=== PATIENT | male | born 1935 | race Caucasian/White ===

== ENCOUNTER 2017-04-30 13:14 | Inpatient (IN) | payer OTHER ==
[2017-04-30] MEDS ORDERED: ETOMIDATE 20 MG/10 ML VIAL IVP ONE ×2 (13:15→19:00)
[2017-04-30] MEDS ORDERED: SUCCINYLCHOLINE CHLORIDE 200 MG/10 ML VIAL IVP ONE (13:15)
[2017-04-30] MEDS ORDERED: PROPOFOL/EMULSION 1,000 MG/100 ML BOTTLE IV ONE ×2 (13:25→14:12)
[2017-04-30] MEDS ORDERED: PROPOFOL/EMULSION 100 ML IV SCH ×2 (13:25→15:30)
[2017-04-30] MEDS ORDERED: PROPOFOL 200 MG/20 ML VIAL IVP ONE ×2 (13:25→14:10)
[2017-04-30 13:26] LABS: % IMMATURE GRANULYOCYTES 1.1 % (0.0-1.1); ABSOLUTE IMMATURE GRANULOCYTES 0.11 10^3/uL (0.00-0.10); ABSOLUTE NRBC COUNT 0.02 10^3/uL (0-0.01); ADD DIFF? NO; ADD MORPH? NO; ADD SCAN? NO; ATYPICAL LYMPHOCYTE FLAG 10 (0-99); FRAGMENT RBC FLAG 0 (0-99); HEMATOCRIT 41.5 % (40.0-51.0); HEMOGLOBIN 14.1 g/dL (13.7-17.5); LEFT SHIFT FLG 10 (0-99); LIPEMIA HEMOLYSIS FLAG 90 (0-99); MEAN CELL VOLUME 88.3 fL (81.5-99.8); NRBC-AUTO% 0.2 % (0.0-0.2); PLATELET CLUMPS FLAG 0 (0-99); PLATELET COUNT 265 10^3/uL (150-400); RED CELL DISTRIBUTION WIDTH 12.3 % (11.5-15.2)
[2017-04-30] MEDS ORDERED: levETIRAcetam 1,000 MG in NS 100 ML IV ONE (13:26)
[2017-04-30 13:33] LABS: INR 1.03 (0.83-1.16); PROTIME(PATIENT) 13.4 SEC (12.0-15.0)
[2017-04-30 13:34] LABS: APTT 23.6 SEC (23.0-38.0)
[2017-04-30 13:46] LABS: ANION GAP 13 mEq/L (8-16); CALCIUM 9.5 mg/dL (8.5-10.4); CARBON DIOXIDE 21 mEq/l (22-31); CHLORIDE 100 mEq/L (97-110); CREATININE 1.3 mg/dL (0.7-1.3); ETHANOL SERUM < 10 mg/dL (0-10); GLOMERULAR FILTRATION RATE 53; GLUCOSE 100 mg/dL (70-100); POTASSIUM 4.5 mEq/L (3.5-5.2); SODIUM 134 mEq/L (134-144)
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
[2017-04-30 14:23] LABS: BASE EXCESS -2.6 mEq/L (-2.5-2.5); BICARBONATE 21 mEq/L (22-26); MEASURED OXYGEN SATURATION 99 % (92-95); PCO2 34 mmHg (34-38); PO2 186 mmHg (65-75); TCO2 22 mEq/L (23-27)
[2017-04-30 14:24] LABS: ASSIST CONTROL YES
[2017-04-30 14:25] LABS: O2 CONCENTRATIION 100 % (0-100); P/F RATIO 186 RATIO; TOTAL RATE 22
[2017-04-30] MEDS: fentaNYL/NACL 100 ML IV SCH (15:27)
--- NOTE | 2017-04-30 16:13 | POSTOPPROG ---
Post Op Note Date of Operation: 04/30/17 Surgeon: Darrel Williamson Supervisor Photoengraving: none Anesthesiologist: none Anesthesia: IV Sedation Pre-op Diagnosis: right ptx Post-op Diagnosis: same Indication: hypoxia Procedure: Right closed tube thoracostomy Findings: resolution of PTX Inf/Abcess present in the surg proc area at time of surgery?: No EBL: Minimal Drains: Other (28Fr chest tube)
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
[2017-04-30] MEDS ORDERED: NALOXONE HCL 0.4 MG/ML INJ IVP PRN (16:20)
[2017-04-30] MEDS ORDERED: LIDOCAINE 1% 300 MG/30 ML SDV ONE (16:55)
[2017-04-30] MEDS ORDERED: LIDOCAINE 2% JELLY 5 ML TUBE ONE (16:57)
[2017-04-30] MEDS ORDERED: LIDOCAINE 1% 300 MG/30 ML SDV MISC ONE (17:05)
[2017-04-30] MEDS ORDERED: LIDOCAINE 2% JELLY 5 ML TUBE TP ONE (17:05)
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
[2017-04-30] MEDS ORDERED: NS BOLUS 1000 ML (Wide open) IV ONE (18:30)
[2017-04-30 18:52] LABS: COLOR YELLOW; LEUKOCYTE ESTERASE,URINE TRACE (NEGATIVE); NITRITE,URINE NEGATIVE (NEGATIVE)
[2017-04-30 18:54] LABS: MUCUS TRACE /lpf (NONE-1+)
--- NOTE | 2017-04-30 19:30 | GPN ---
[f rep st] PROCEDURE NOTE DATE OF PROCEDURE: 04/30/2017 PROCEDURE: Flexible fiberoptic bronchoscopy. REASON FOR THE PROCEDURE: Probable aspiration. PROCEDURE NOTE: The risks and benefits of the procedure were explained to the patient's family, who agreed to proceed. The entire procedure was performed in the intensive care unit with the patient un venus blood pressure, EKG, and oximetry monitoring. It was my assessment that there was no significant risk of airborne infection from the procedure. After an appropriate time-out, 2 cc 1% lidocaine was instilled into the patient's endotracheal tube. The bronchoscope was advanced through the endotrach eal tube, where I encountered a small to moderate amount of purulent secretions. These were easily s uctioned. I then proceeded to the right-sided airways, where there was near-complete obstruction of the right b ronchus intermedius with purulent secretions, with some firm objects that appeared to be foreign mate rial. The secretions and material were removed, and required me to remove the bronchoscope about 8-1 0 times because of occlusion of the bronchoscope channel, or because the objects were too large to be suctioned through the channel. Most of the material was from the basal segments of the lower lobe. There were no significant secretions or endobronchial material in the upper lobe. There were also s ecretions and material in the middle lobe, and superior segment of the right lower lobe. I then turned to the left-sided airways, where I encountered a scant amount of secretions with some h олег foreign material in the mainstem bronchus, and also the lower lobe. This was easily removed and the total volume was fairly small. The left lower lobe was then lavaged and was clear. I then returned to the right-sided airways, where the lower lobe was lavaged. All airways were clear at the end of this procedure. No specimens were sent. The patient received small boluses of fentan yl and propofol during the procedure for anesthesia and sedation. There were no complications or ble eding with the procedure. /[id number]/MODL
[2017-04-30] MEDS: CHLORHEXIDINE GLUCONATE 15 ML UDL PO SCH (20:54)
[2017-04-30] MEDS: FAMOTIDINE 20 MG/NACL 50 ML IV SCH (20:54)
[2017-04-30] MEDS: levETIRAcetam 500 MG in NS 100 ML IV SCH (20:56)
[2017-04-30] MEDS ORDERED: FAMOTIDINE 20 MG/NACL 50 ML IV SCH ×2 (21:00)
[2017-04-30 21:39] LABS: BASE EXCESS -3.7 mEq/L (-2.5-2.5); BICARBONATE 20 mEq/L (22-26); MEASURED OXYGEN SATURATION 92 % (92-95); PCO2 33 mmHg (34-38); PO2 66 mmHg (65-75); TCO2 21 mEq/L (23-27)
[2017-04-30 21:41] LABS: END TIDAL CO2 26; SIMV YES
[2017-04-30 21:42] LABS: PATIENT RATE 12; PIP 20.8; PRESSURE SUPPORT 7
--- NOTE | 2017-04-30 21:52 | NEUSURGPN ---
Subjective: Repeat Head CT reviewed. There is a small new SDH with small shearing hematomas...no midline shift or mass effect. Patient is still intubated with non-focal neuro examination. Will repeat Head CT in the am. Catheter Insertion Date: 04/30/17 Neurosurgery Physical Exam - Vitals, I&O, Labs I and O 04/29/17 04/30/17 05/01/17 05:59 05:59 05:59 Intake Total 1231.0 Output Total 550 Balance 681.0 Weight 59.2 kg Intake: IV Intake (ml) 1000 IV Infused (ml) 231.0 Propofol/Emulsion 100 ml 10.8 @ Per Protocol IV CONT LUCIA Rx#:[id number] fentaNYL/NACL 100 ml @ 20.2 Per Protocol IV CONT LUCIA Rx#:[id number] Output: Urine (ml) 350 Catheter 350 Emesis (ml) 200 Vital Signs Temp Pulse Resp BP Pulse Ox 37.5 C 64 21 H 95/61 L 94 04/30/17 19:00 04/30/17 21:00 04/30/17 21:00 04/30/17 21:00 04/30/17 21:00 Laboratory Results 04/30/17 Unknown 04/30/17 Unknown ICD10 Worksheet Patient Problems: Problems Problem Status Onset Closed right clavicular fracture Acute Multiple rib fractures involving four or more ribs Acute Pneumothorax Acute Right acetabular fracture Acute Subarachnoid hemorrhage, traumatic Acute Traumatic pneumothorax Acute
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
[2017-05-01] MEDS: fentaNYL/NACL 100 ML IV SCH (06:39)
[2017-05-01] MEDS: levETIRAcetam 500 MG in NS 100 ML IV SCH ×2 (08:19→21:28)
[2017-05-01] MEDS: CHLORHEXIDINE GLUCONATE 15 ML UDL PO SCH ×2 (08:19→21:28)
[2017-05-01 08:36] LABS: % IMMATURE GRANULYOCYTES 0.4 % (0.0-1.1); ABSOLUTE IMMATURE GRANULOCYTES 0.05 10^3/uL (0.00-0.10); ADD DIFF? NO; ADD MORPH? NO; ADD SCAN? NO; ATYPICAL LYMPHOCYTE FLAG 0 (0-99); FRAGMENT RBC FLAG 0 (0-99); HEMATOCRIT 33.9 % (40.0-51.0); HEMOGLOBIN 11.3 g/dL (13.7-17.5); LEFT SHIFT FLG 40 (0-99); LIPEMIA HEMOLYSIS FLAG 80 (0-99); MEAN CELL HEMOGLOBIN 30.4 pg (27.9-34.1); MEAN CELL HEMOGLOBIN CONCENTR. 33.3 g/dL (32.4-36.7); MEAN CELL VOLUME 91.1 fL (81.5-99.8); MEAN PLATELET VOLUME 10.6 fL (8.7-11.7); PLATELET CLUMPS FLAG 0 (0-99); PLATELET COUNT 158 10^3/uL (150-400); RED BLOOD CELL COUNT 3.72 10^6/uL (4.40-6.38); RED CELL DISTRIBUTION WIDTH 13.1 % (11.5-15.2)
--- NOTE | 2017-05-01 08:37 | SOAPPROG ---
SOAP Progress Note Assessment/Plan: Assessment: NO Change in condition Plan:Non operateive management for both right Clavicle Fracture and Left Acetabular Fracture WB as tolerated B LE's NWB Right UE 05/01/17 08:36 Subjective: Intubated and sedated Objective: Vital Signs Temp Pulse Resp BP Pulse Ox 37.2 C 71 17 99/66 L 97 05/01/17 08:00 05/01/17 08:00 05/01/17 08:00 05/01/17 08:00 05/01/17 08:00 04/30/17 05/01/17 05/02/17 05:59 05:59 05:59 Intake Total 2026.0 Output Total 1405 Balance 621.0 PT 13.4 SEC (12.0-15.0) 04/30/17 Unknown INR 1.03 (0.83-1.16) 04/30/17 Unknown NO change in condition. CXR from this am shows clavicle is unchanged in position (stable) ICD10 Worksheet Patient Problems: Problems Problem Status Onset Closed right clavicular fracture Acute Multiple rib fractures involving four or more ribs Acute Pneumothorax Acute Right acetabular fracture Acute Subarachnoid hemorrhage, traumatic Acute Traumatic pneumothorax Acute
[2017-05-01] MEDS ORDERED: ERTAPENEM 1 GM in NS 100 ML IV SCH (09:00)
[2017-05-01 09:08] LABS: ANION GAP 11 mEq/L (8-16); CALCIUM 8.2 mg/dL (8.5-10.4); CARBON DIOXIDE 20 mEq/l (22-31); CHLORIDE 105 mEq/L (97-110); CREATININE 1.9 mg/dL (0.7-1.3); GLOMERULAR FILTRATION RATE 34; GLUCOSE 108 mg/dL (70-100); POTASSIUM 5.5 mEq/L (3.5-5.2); SODIUM 136 mEq/L (134-144); SPECIMEN HEMOLYSIS 178
--- NOTE | 2017-05-01 09:58 | TRAUMAPN ---
Assessment/Plan: no new overnight issues. CT with increasing SDH last ann - unchanged today am. t 37.2. BP 100/70. P 71. R 17. intubated, sedated. HEENT - dried blood right temporal region. PERRLA/EOMI. heart regular. lungs clear. abd nontender. chest - no leak - serosang. pelvis stable. ext warm without edema. s/p BCA SAH/SDH-stable on f/u CT today-NS following Aspiration/resp failure -vent wean as able, empiric ABX, right lower lobe density - ?asp vs retained blood Right clavicle fx - supportive care Mult rib rx (12R, 1L) with PTX - high risk for postop pneumonia once extubate - pulm toilet will be critical - cont drainage until extubated - no leak noted today Right acetab fx - supportive care - apprec ortho eval Objective: Vital Signs Temp Pulse Resp BP Pulse Ox 37.2 C 69 23 H 109/66 96 05/01/17 08:00 05/01/17 09:00 05/01/17 09:00 05/01/17 09:00 05/01/17 09:00 Laboratory Results 05/01/17 08:30 05/01/17 08:30 04/30/17 05/01/17 05/02/17 05:59 05:59 05:59 Intake Total 2026.0 Output Total 1405 Balance 621.0 PT 13.4 SEC (12.0-15.0) 04/30/17 Unknown INR 1.03 (0.83-1.16) 04/30/17 Unknown
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
[2017-05-01 10:14] LABS: BASE EXCESS -4.4 mEq/L (-2.5-2.5); BICARBONATE 20 mEq/L (22-26); MEASURED OXYGEN SATURATION 95 % (92-95); PCO2 34 mmHg (34-38); PO2 78 mmHg (65-75); TCO2 21 mEq/L (23-27)
[2017-05-01] MEDS: NS 1,000 ML IV SCH ×3 (11:16→21:29)
[2017-05-01 15:01] LABS: ANION GAP 6 mEq/L (8-16); CALCIUM 8.1 mg/dL (8.5-10.4); CARBON DIOXIDE 21 mEq/l (22-31); CHLORIDE 106 mEq/L (97-110); CREATININE 1.9 mg/dL (0.7-1.3); GLOMERULAR FILTRATION RATE 34; GLUCOSE 112 mg/dL (70-100); POTASSIUM 4.5 mEq/L (3.5-5.2); SODIUM 133 mEq/L (134-144)
[2017-05-01] MEDS ORDERED: NS 1,000 ML IV ONE (15:02)
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
[2017-05-01] MEDS: FAMOTIDINE 20 MG/NACL 50 ML IV SCH (21:28)
[2017-05-02 04:41] LABS: ALANINE AMINOTRANSFERASE 46 IU/L (21-72); ALBUMIN 2.6 g/dL (3.5-5.0); ALKALINE PHOSPHATASE 53 IU/L (38-126); ANION GAP 9 mEq/L (8-16); ASPARTATE AMINOTRANSFERASE 31 IU/L (17-59); BILIRUBIN,TOTAL 0.7 mg/dL (0.1-1.4); CALCIUM 7.8 mg/dL (8.5-10.4); CARBON DIOXIDE 19 mEq/l (22-31); CHLORIDE 111 mEq/L (97-110); CREATININE 1.3 mg/dL (0.7-1.3); GLOMERULAR FILTRATION RATE 53; GLUCOSE 99 mg/dL (70-100); POTASSIUM 4.1 mEq/L (3.5-5.2); SODIUM 139 mEq/L (134-144); TOTAL PROTEIN 5.3 g/dL (6.3-8.2)
[2017-05-02] MEDS: fentaNYL/NACL 100 ML IV SCH (07:13)
--- NOTE | 2017-05-02 08:03 | TRAUMAPN ---
- Problem/Surgery Performed (1) Closed right clavicular fracture Assessment/Plan: ortho consult Dr. Mills/operative intervention not recommended Qualifiers: Encounter type: initial encounter (2) Multiple rib fractures involving four or more ribs Assessment/Plan: continue supportive care/attempt wean from vent (3) Pneumothorax Assessment/Plan: repeat CXR shows lung to be fully inflated without pneumo-CT placed to H20 seal/ CT dressing change today Qualifiers: Pneumothorax type: traumatic (4) Right acetabular fracture Assessment/Plan: ortho consult Dr. Mills-recommends non-operative Rx Qualifiers: Encounter type: initial encounter Sublocation of acetabulum: anterior wall Fracture alignment: nondisplaced (5) Subarachnoid hemorrhage, traumatic Assessment/Plan: stable on sequential CT Qualifiers: Encounter type: initial encounter Loss of consciousness presence/duration: with LOC of unspecified duration Qualified Code(s): S06.6X9A - Traumatic subarachnoid hemorrhage with loss of consciousness of unspecified duration, initial encounter (6) Aspiration pneumonia due to regurgitated food Assessment/Plan: s/p bronch/Day #3 Ertapenam Qualifiers: Laterality: unspecified laterality Assessment/Plan: continue ventilatory support/sedation vacation for weaning assessment tertiary survey when extubated Subjective: intubated/sedated RN reports patient not moving right side of body Objective: Vital Signs Temp Pulse Resp BP Pulse Ox 37.3 C 66 27 H 150/70 H 99 05/02/17 04:00 05/02/17 07:00 05/02/17 07:00 05/02/17 07:00 05/02/17 07:00 Laboratory Results 05/01/17 08:30 05/02/17 04:15 05/01/17 05/02/17 05/03/17 05:59 05:59 05:59 Intake Total 2026.0 4655 Output Total 1405 775 50 Balance 621.0 3880 -50 PT 13.4 SEC (12.0-15.0) 04/30/17 Unknown INR 1.03 (0.83-1.16) 04/30/17 Unknown - C-Spine Clearance Cervical Spine Cleared: No Physical Exam - Physical Exam General Appearance: unresponsive EENT: ET tube, other (C-collar/large right parietal scalp hematoma) Neck: other ([place] J collar in place) Respiratory: decreased breath sounds, pleural rub, other (minute ventilation 9.7 lpm, bloody CT site-dressing removed, no air leak with CT on suction- minimal output) Peripheral Pulses: 2+: dorsalis-pedis (R), dorsalis-pedis (L) Abdomen: soft, other (hypoactive bowel sounds) Rectal: deferred Skin: other (contusion right hip) Extremities: other (flacid RUE/RLE, RLE internal rotated) Neuro/Psych: motor weakness (right), cognition abnormalities, other (sedated/ intubated) Time Spent w/Patient (minutes): 20
[2017-05-02] MEDS: hydrALAZINE 20 MG/ML VIAL IVP PRN ×2 (08:14→17:08)
[2017-05-02] MEDS: levETIRAcetam 500 MG in NS 100 ML IV SCH ×2 (08:18→21:03)
[2017-05-02] MEDS: ERTAPENEM 0.5 GM in NS 50 ML IV SCH (08:18)
[2017-05-02] MEDS: CHLORHEXIDINE GLUCONATE 15 ML UDL PO SCH ×2 (08:18→20:00)
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
--- NOTE | 2017-05-02 12:42 | ASMTCMCOM ---
CM Note CM Note Notes: OT/PT/SPL/Inpat rehab have been ordered. Anitha with [facility] is following. Patient is still on vent, needs to be more alert to protect his airway. Patient has not had much neurological improvement so far. CM will follow. Date Signed: 05/02/2017 12:41 PM Electronically Signed By:Tanya Silva LCSW
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
--- NOTE | 2017-05-02 14:53 | SOAPPROG ---
SOAP Progress Note Assessment/Plan: Assessment/Plan: R clavicle fracture, R acetabular fracture - Treating non-operatively - WBAT BLE - NWB RUE - Ice for comfort 05/02/17 14:50 Subjective: Sedated. Family at bedside Objective: Vital Signs Temp Pulse Resp BP Pulse Ox 37.3 C 69 20 140/72 H 99 05/02/17 04:00 05/02/17 14:00 05/02/17 14:00 05/02/17 14:00 05/02/17 14:00 Microbiology 05/02/17 08:25 - Final Sputum, Induced/Suctioned Laboratory Results 05/01/17 08:30 05/02/17 04:15 05/01/17 05/02/17 05/03/17 05:59 05:59 05:59 Intake Total 2026.0 4655 Output Total 1405 775 255 Balance 621.0 3880 -255 PT 13.4 SEC (12.0-15.0) 04/30/17 Unknown INR 1.03 (0.83-1.16) 04/30/17 Unknown Physical Exam - Physical Exam General Appearance: no apparent distress, other (sedated) Skin: warm/dry, other (ecchymosis R shoulder) Extremities: normal capillary refill, other (Wiggles toes on R foot and responds to stimuli. Skin intact RUE without any tenting of the skin), No pedal edema, No calf tenderness ICD10 Worksheet Patient Problems: Problems Problem Status Onset Aspiration pneumonia due to regurgitated food Acute Closed right clavicular fracture Acute Multiple rib fractures involving four or more ribs Acute Pneumothorax Acute Right acetabular fracture Acute Subarachnoid hemorrhage, traumatic Acute Traumatic pneumothorax Acute
[2017-05-02] MEDS: FAMOTIDINE 20 MG/NACL 50 ML IV SCH (21:02)
[2017-05-03] MEDS: NS 1,000 ML IV SCH ×3 (01:55→23:34)
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
[2017-05-03] MEDS: levETIRAcetam 500 MG in NS 100 ML IV SCH ×2 (08:24→21:45)
[2017-05-03] MEDS: fentaNYL/NACL 100 ML IV SCH (08:24)
[2017-05-03] MEDS: ERTAPENEM 0.5 GM in NS 50 ML IV SCH (09:36)
[2017-05-03] MEDS ORDERED: LIDOCAINE 1% 300 MG/30 ML SDV MISC ONE (10:42)
[2017-05-03] MEDS ORDERED: LIDOCAINE 2% JELLY 5 ML TUBE TP ONE (10:42)
[2017-05-03] MEDS ORDERED: LIDOCAINE 1% 300 MG/30 ML SDV ONE (10:48)
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
[2017-05-03] MEDS: CHLORHEXIDINE GLUCONATE 15 ML UDL PO SCH ×2 (12:07→22:15)
[2017-05-03] MEDS ORDERED: TAMSULOSIN HCL 0.4 MG CAP PO SCH (12:15)
[2017-05-03] MEDS: LISINOPRIL 40 MG TAB PO SCH (12:27)
[2017-05-03] MEDS: ATORVASTATIN CALCIUM 20 MG TAB PO SCH (12:27)
--- NOTE | 2017-05-03 12:57 | GPN ---
[f rep st] PROCEDURE NOTE DATE OF PROCEDURE: 05/03/2017 PROCEDURE: Flexible fiberoptic bronchoscopy. INDICATIONS FOR PROCEDURE: Respiratory failure with retained secretions. PROCEDURE: The risks and benefits of the procedure were explained to the patient's son, who agreed t o proceed. The entire procedure was performed in the intensive care unit with the patient under bloo d pressure, EKG, and oximetry monitoring. It was my assessment that there was no risk of airborne in fection from the procedure. After an appropriate time-out, the bronchoscope was advanced through the endotracheal tube. I encountered some purulent secretions in the distal trachea, which were easily suctioned. This was a moderate amount of secretions. They came primarily from the right-sided airwa ys, where there were scattered purulent secretions in the right mainstem bronchus and bronchus interm edius. These were all suctioned and primarily were coming from the lower lobe segments, which were s uctioned and lavaged until clear. I then turned to the left-sided airways, where I encountered a sma [id number] amount of purulent secretions, which were partially occlusive of some lower lobe segme nts. These were suctioned and lavaged until clear. The patient tolerated the procedure well. He re ceived 100 mcg of fentanyl intravenously. No specimens were sent. There were no complications appar ent at the end of the procedure. /[id number]/MODL
--- NOTE | 2017-05-03 14:16 | TRAUMAPN ---
- Problem/Surgery Performed (1) Subarachnoid hemorrhage, traumatic Assessment/Plan: PAD#3 05/03/2017 Moving bilateral upper and lower extremities spontaneously but not on command, right greater than left. He will open his eyes to command. Qualifiers: Encounter type: subsequent encounter Loss of consciousness presence/ duration: with LOC of unspecified duration Qualified Code(s): S06.6X9D - Traumatic subarachnoid hemorrhage with loss of consciousness of unspecified duration, subsequent encounter (2) Closed right clavicular fracture Assessment/Plan: 05/03/2017 Will plan to use right arm sling. NWB at this time Qualifiers: Encounter type: initial encounter (3) Pneumothorax Assessment/Plan: 05/03/2017 No air leak x 24 hours, minimal fluid out, Lung up on CXR. Chest tube removed. Qualifiers: Pneumothorax type: traumatic (4) Aspiration pneumonia due to regurgitated food Assessment/Plan: 04/23/2017 Bronch today showed some purulence. Sputum from yesterday prelaminarly shows nick. Repeat Bronch tomorrow and may consider antifungal tx. Qualifiers: Laterality: unspecified laterality (5) Malnutrition Assessment/Plan: 05/03/2017 Will start tube feeds today (6) Respiratory insufficiency Assessment/Plan: 05/03/2017 Still intubated. Undergoing weaning trials (7) Abrasions of multiple sites Assessment/Plan: 05/03/2017 right facial abrasions well scabbed. Right elbow abrasions still open - superficial partial thickness. Right flank abrasion superficial. right lower lateral leg abrasions healing. Right hip contusion stable. Assessment/Plan: 05/03/2017 Continues to slowly improve Subjective: 05/03/2017 Still intubated Objective: Vital Signs Temp Pulse Resp BP Pulse Ox 37.3 C 50 L 18 140/72 H 99 05/03/17 12:15 05/03/17 13:00 05/03/17 13:00 05/03/17 13:00 05/03/17 13:00 Microbiology 05/02/17 08:25 - Final Sputum, Induced/Suctioned Laboratory Results 05/01/17 08:30 05/02/17 04:15 05/02/17 05/03/17 05/04/17 05:59 05:59 05:59 Intake Total 4655 1883.3 Output Total 775 602 150 Balance 3880 1281.3 -150 PT 13.4 SEC (12.0-15.0) 04/30/17 Unknown INR 1.03 (0.83-1.16) 04/30/17 Unknown - C-Spine Clearance Cervical Spine Cleared: No Physical Exam - Physical Exam General Appearance: WD/WN, other (intubated. Will open eyes to command) EENT: other (Facial contusions healing) Neck: other (In C-collar. Because of multiple degenerative changes will await extubation to clear.) Respiratory: lungs clear, normal breath sounds, other (chest tube out) Cardiac/Chest: regular rate, rhythm Abdomen: normal bowel sounds, non-tender, soft Male Genitalia: deferred Rectal: deferred Back: Normal inspection (except for right back abrasions) Skin: normal color, warm/dry, other (See notes above describing abrasions) Extremities: normal range of motion, non-tender Neuro/Psych: other (intubated, opening eyes to command. moving extremeties spontaneously) Time Spent w/Patient (minutes): 35
[2017-05-03 15:17] LABS: BASE EXCESS -4.6 mEq/L (-2.5-2.5); BICARBONATE 19 mEq/L (22-26); CPAP YES; MEASURED OXYGEN SATURATION 96 % (92-95); O2 CONCENTRATIION 40 % (0-100); P/F RATIO 198 RATIO; PCO2 32 mmHg (34-38); PO2 79 mmHg (65-75); TCO2 20 mEq/L (23-27)
[2017-05-03 15:18] LABS: END TIDAL CO2 27; PATIENT RATE 24; PRESSURE SUPPORT 7
[2017-05-03 15:23] LABS: % IMMATURE GRANULYOCYTES 0.4 % (0.0-1.1); ABSOLUTE IMMATURE GRANULOCYTES 0.02 10^3/uL (0.00-0.10); ADD DIFF? NO; ADD MORPH? NO; ADD SCAN? NO; ATYPICAL LYMPHOCYTE FLAG 0 (0-99); FRAGMENT RBC FLAG 0 (0-99); HEMATOCRIT 29.4 % (40.0-51.0); HEMOGLOBIN 9.4 g/dL (13.7-17.5); LEFT SHIFT FLG 0 (0-99); LIPEMIA HEMOLYSIS FLAG 80 (0-99); MEAN CELL HEMOGLOBIN 29.9 pg (27.9-34.1); MEAN CELL VOLUME 93.6 fL (81.5-99.8); MEAN PLATELET VOLUME 10.8 fL (8.7-11.7); PLATELET CLUMPS FLAG 0 (0-99); PLATELET COUNT 117 10^3/uL (150-400); RED BLOOD CELL COUNT 3.14 10^6/uL (4.40-6.38); RED CELL DISTRIBUTION WIDTH 13.3 % (11.5-15.2)
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
[2017-05-03] MEDS: FAMOTIDINE 20 MG/NACL 50 ML IV SCH (21:45)
[2017-05-03] MEDS: hydrALAZINE 20 MG/ML VIAL IVP PRN (22:21)
[2017-05-04] MEDS: fentaNYL/NACL 100 ML IV SCH (03:22)
[2017-05-04 06:03] LABS: HEMATOCRIT 30.6 % (40.0-51.0); HEMOGLOBIN 9.8 g/dL (13.7-17.5); MEAN CELL VOLUME 93.6 fL (81.5-99.8); RED BLOOD CELL COUNT 3.27 10^6/uL (4.40-6.38); RED CELL DISTRIBUTION WIDTH 13.2 % (11.5-15.2)
[2017-05-04 06:32] LABS: ALANINE AMINOTRANSFERASE 46 IU/L (21-72); ALBUMIN 2.6 g/dL (3.5-5.0); ALKALINE PHOSPHATASE 61 IU/L (38-126); ANION GAP 6 mEq/L (8-16); ASPARTATE AMINOTRANSFERASE 31 IU/L (17-59); BILIRUBIN,TOTAL 0.7 mg/dL (0.1-1.4); CALCIUM 7.9 mg/dL (8.5-10.4); CARBON DIOXIDE 21 mEq/l (22-31); CHLORIDE 116 mEq/L (97-110); CREATININE 0.9 mg/dL (0.7-1.3); GLOMERULAR FILTRATION RATE > 60; GLUCOSE 115 mg/dL (70-100); POTASSIUM 4.1 mEq/L (3.5-5.2); SODIUM 143 mEq/L (134-144); TOTAL PROTEIN 5.4 g/dL (6.3-8.2)
[2017-05-04] MEDS ORDERED: CYCLOBENZAPRINE 10 MG TAB PO PRN (06:54)
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
[2017-05-04] MEDS: LIDOCAINE 5% 1 EA PATCH TD SCH ×2 (08:40→08:45)
[2017-05-04] MEDS: ATORVASTATIN CALCIUM 20 MG TAB PO SCH (08:41)
[2017-05-04] MEDS: CHLORHEXIDINE GLUCONATE 15 ML UDL PO SCH ×2 (08:41→19:50)
[2017-05-04] MEDS: LISINOPRIL 40 MG TAB PO SCH (08:41)
[2017-05-04] MEDS: levETIRAcetam 500 MG in NS 100 ML IV SCH (08:45)
[2017-05-04] MEDS: KETOROLAC 30 MG/1 ML SDV IVP SCH ×3 (09:15→19:50)
[2017-05-04] MEDS: ERTAPENEM 1 GM in NS 100 ML IV SCH (09:23)
[2017-05-04] MEDS: ACETAMINOPHEN 650 MG/20.3 ML UDCUP TUBE SCH ×3 (09:23→21:10)
--- NOTE | 2017-05-04 10:27 | TRAUMAPN ---
- Problem/Surgery Performed (1) Subarachnoid hemorrhage, traumatic Assessment/Plan: PAD#3 05/03/2017 Moving bilateral upper and lower extremities spontaneously but not on command, right greater than left. He will open his eyes to command. PAD#4 05/04/2017 He is not opening eyes to command or moving extremities spontaneously. Plan: Will get F/u Head CT to re assess. Qualifiers: Encounter type: subsequent encounter Loss of consciousness presence/ duration: with LOC of unspecified duration Qualified Code(s): S06.6X9D - Traumatic subarachnoid hemorrhage with loss of consciousness of unspecified duration, subsequent encounter (2) Closed right clavicular fracture Assessment/Plan: 05/03/2017 Will plan to use right arm sling. NWB at this time 05/04/2017 No change in plan Qualifiers: Encounter type: initial encounter (3) Pneumothorax Assessment/Plan: 05/03/2017 No air leak x 24 hours, minimal fluid out, Lung up on CXR. Chest tube removed. 05/04/2017 Lung up, no PTX/Hemothorax Qualifiers: Pneumothorax type: traumatic (4) Aspiration pneumonia due to regurgitated food Assessment/Plan: 05/03/2017 Bronch today showed some purulence. Sputum from yesterday prelaminarly shows nick. Repeat Bronch tomorrow and may consider antifungal tx. 05/04/2017 Follow up bronch today. WBC down. No temp elevation. Qualifiers: Laterality: unspecified laterality (5) Malnutrition Assessment/Plan: 05/03/2017 Will start tube feeds today 05/04/17 tube feeds at goal (6) Respiratory insufficiency Assessment/Plan: 05/03/2017 Still intubated. Undergoing weaning trials 05/04/2017 tolerated 3.5 hours of CPAP yesterday. Will check Phos levels (7) Abrasions of multiple sites Assessment/Plan: 05/03/2017 right facial abrasions well scabbed. Right elbow abrasions still open - superficial partial thickness. Right flank abrasion superficial. right lower lateral leg abrasions healing. Right hip contusion stable. 05/04/2017 Stable Assessment/Plan: 05/03/2017 Continues to slowly improve. 05/04/2017 Improvement stalled. F/u head CT planned. Subjective: 05/04/2017 still intubated and not communicating. Objective: Vital Signs Temp Pulse Resp BP Pulse Ox 36.9 C 63 16 144/64 H 100 05/04/17 04:00 05/04/17 08:00 05/04/17 08:00 05/04/17 08:00 05/04/17 08:00 Microbiology 05/02/17 08:25 - Final Sputum, Induced/Suctioned Laboratory Results 05/04/17 05:45 05/04/17 05:45 05/03/17 05/04/17 05/05/17 05:59 05:59 05:59 Intake Total 1883.3 2119.9 Output Total 602 905 Balance 1281.3 1214.9 PT 13.4 SEC (12.0-15.0) 04/30/17 Unknown INR 1.03 (0.83-1.16) 04/30/17 Unknown - C-Spine Clearance Cervical Spine Cleared: No Physical Exam - Physical Exam General Appearance: unresponsive EENT: other (facial abrasions stable) Neck: other (still in collar) Respiratory: lungs clear, normal breath sounds Cardiac/Chest: regular rate, rhythm Abdomen: normal bowel sounds (tolerating tube feeds), non-tender, soft Male Genitalia: deferred Rectal: deferred Back: Normal inspection (except for abrasions) Skin: normal color, warm/dry Extremities: normal range of motion Neuro/Psych: other (still obtunded) Time Spent w/Patient (minutes): 35
[2017-05-04] MEDS ORDERED: LIDOCAINE 1% 300 MG/30 ML SDV MISC ONE (10:52)
[2017-05-04] MEDS ORDERED: MIDAZOLAM 2 MG/2 ML VIAL ONE (11:13)
[2017-05-04] MEDS ORDERED: KETOROLAC 30 MG/1 ML SDV IVP SCH (12:00)
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
--- NOTE | 2017-05-04 13:49 | GPN ---
[f rep st] PROCEDURE NOTE DATE OF PROCEDURE: 05/04/2017 PROCEDURE: Flexible fiberoptic bronchoscopy. REASON FOR PROCEDURE: Respiratory failure with retained secretions. PROCEDURE NOTE: The risks and benefits of the procedure were explained to the patient's son, who agr eed to proceed. The entire procedure was performed in the intensive care unit. The patient had bloo d pressure, EKG and oximetry monitoring. It was my assessment that there was no risk of airborne inf ection from the procedure. After an appropriate timeout, 3 cc of 1% lidocaine were instilled into th e patient's endotracheal tube. The bronchoscope was advanced through the endotracheal tube into the main trachea. The trachea and proximal mainstem bronchi were clear, but below the right upper lobe t akeoff, the right bronchus intermedius was occluded with mucopurulent secretions. These were cleared , and I had to remove the bronchoscope twice in order to clear secretions from the channel. After cl earing the right side, I turned to the left side, where I encountered scant amount of mucopurulent se cretions, which were easily suctioned. I then returned to the right side airways and suctioned the m inimal remaining secretions, and all airways were clear at the end of the procedure. There were no c omplications apparent at the end of the procedure. No sedation was used beyond what he was on via co ntinuous drip, and there was no estimated blood loss. No specimens were sent. /[id number]/MODL
[2017-05-04] MEDS ORDERED: ACETAMINOPHEN 500 MG TAB PO SCH (14:00)
--- NOTE | 2017-05-04 15:41 | ASMTCMCOM ---
CM Note CM Note Notes: Patient is not opening his eyes to command or moving extremities spontaneously. F/U head CT to reassess today. CM will follow. Date Signed: 05/04/2017 03:40 PM Electronically Signed By:Tanya Silva LCSW
--- NOTE | 2017-05-04 16:03 | SOAPPROG ---
SOAP Progress Note Assessment/Plan: Assessment: NO Change in condition Plan:Non operateive management for both right Clavicle Fracture and Left Acetabular Fracture WB as tolerated B LE's NWB Right UE 05/01/17 08:36 05/04/17 16:03 Will sign off now. See D/C plan in EMR for F/U plan. Subjective: Intubated and sedated Objective: Vital Signs Temp Pulse Resp BP Pulse Ox 37.2 C 52 L 18 139/63 H 100 05/04/17 12:00 05/04/17 13:00 05/04/17 13:00 05/04/17 13:00 05/04/17 13:00 Microbiology 05/02/17 08:25 - Final Sputum, Induced/Suctioned Sputum Culture - Final Camila Albicans Laboratory Results 05/04/17 05:45 05/04/17 05:45 05/03/17 05/04/17 05/05/17 05:59 05:59 05:59 Intake Total 1883.3 2119.9 Output Total 602 905 Balance 1281.3 1214.9 PT 13.4 SEC (12.0-15.0) 04/30/17 Unknown INR 1.03 (0.83-1.16) 04/30/17 Unknown No change in popsition of right clavicle as seen on daily CXR's. Will need didicaed clavicle films once up and moving. D/C plan entered in EMR. ICD10 Worksheet Patient Problems: Problems Problem Status Onset Abrasions of multiple sites Acute Aspiration pneumonia due to regurgitated food Acute Closed right clavicular fracture Acute Malnutrition Acute Multiple rib fractures involving four or more ribs Acute Pneumothorax Acute Respiratory insufficiency Acute Right acetabular fracture Acute Subarachnoid hemorrhage, traumatic Acute Traumatic pneumothorax Acute
[2017-05-04] MEDS: CYCLOBENZAPRINE 10 MG TAB TUBE PRN ×2 (18:08→21:09)
[2017-05-04] MEDS: levETIRAcetam 500 MG/5 ML UDCUP TUBE SCH (19:50)
[2017-05-04] MEDS: FAMOTIDINE 20 MG TAB TUBE SCH (19:50)
[2017-05-04] MEDS: PATCH REMOVAL 1 EA PATCH TD SCH (19:51)
[2017-05-05] MEDS: KETOROLAC 30 MG/1 ML SDV IVP SCH ×4 (02:15→20:05)
[2017-05-05 04:45] LABS: % IMMATURE GRANULYOCYTES 0.5 % (0.0-1.1); ABSOLUTE IMMATURE GRANULOCYTES 0.02 10^3/uL (0.00-0.10); ADD DIFF? NO; ADD MORPH? NO; ADD SCAN? NO; ATYPICAL LYMPHOCYTE FLAG 10 (0-99); FRAGMENT RBC FLAG 0 (0-99); HEMOGLOBIN 9.2 g/dL (13.7-17.5); LEFT SHIFT FLG 0 (0-99); LIPEMIA HEMOLYSIS FLAG 80 (0-99); MEAN CELL HEMOGLOBIN 29.9 pg (27.9-34.1); MEAN CELL HEMOGLOBIN CONCENTR. 31.7 g/dL (32.4-36.7); MEAN CELL VOLUME 94.2 fL (81.5-99.8); MEAN PLATELET VOLUME 10.4 fL (8.7-11.7); PLATELET CLUMPS FLAG 20 (0-99); PLATELET COUNT 118 10^3/uL (150-400); RED BLOOD CELL COUNT 3.08 10^6/uL (4.40-6.38); RED CELL DISTRIBUTION WIDTH 13.1 % (11.5-15.2)
[2017-05-05] MEDS: ACETAMINOPHEN 650 MG/20.3 ML UDCUP TUBE SCH (05:06)
[2017-05-05 05:08] LABS: ALANINE AMINOTRANSFERASE 104 IU/L (21-72); ALBUMIN 2.3 g/dL (3.5-5.0); ALKALINE PHOSPHATASE 69 IU/L (38-126); ANION GAP 8 mEq/L (8-16); ASPARTATE AMINOTRANSFERASE 120 IU/L (17-59); BILIRUBIN,TOTAL 0.9 mg/dL (0.1-1.4); CALCIUM 7.8 mg/dL (8.5-10.4); CARBON DIOXIDE 22 mEq/l (22-31); CHLORIDE 117 mEq/L (97-110); GLOMERULAR FILTRATION RATE > 60; GLUCOSE 112 mg/dL (70-100); POTASSIUM 3.8 mEq/L (3.5-5.2); SODIUM 147 mEq/L (134-144)
[2017-05-05] MEDS: hydrALAZINE 20 MG/ML VIAL IVP PRN ×3 (07:23→15:13)
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
[2017-05-05] MEDS: LISINOPRIL 40 MG TAB TUBE SCH (09:52)
[2017-05-05] MEDS: levETIRAcetam 500 MG/5 ML UDCUP TUBE SCH ×2 (09:52→20:05)
[2017-05-05] MEDS: ATORVASTATIN CALCIUM 20 MG TAB TUBE SCH (09:53)
[2017-05-05] MEDS: FAMOTIDINE 20 MG TAB TUBE SCH ×2 (09:53→20:05)
[2017-05-05] MEDS: CHLORHEXIDINE GLUCONATE 15 ML UDL PO SCH ×2 (09:53→19:14)
[2017-05-05] MEDS: LIDOCAINE 5% 1 EA PATCH TD SCH (09:54)
[2017-05-05] MEDS: ERTAPENEM 1 GM in NS 100 ML IV SCH (09:57)
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
[2017-05-05] MEDS ORDERED: FUROSEMIDE 40 MG/4 ML VIAL IVP ONE (10:04)
[2017-05-05] MEDS: CYCLOBENZAPRINE 10 MG TAB TUBE PRN (10:09)
[2017-05-05] MEDS: HYDROCHLOROTHIAZIDE 25 MG TAB PO SCH (10:29)
[2017-05-05] MEDS ORDERED: LIDOCAINE 1% 300 MG/30 ML SDV MISC ONE (12:04)
[2017-05-05] MEDS ORDERED: LIDOCAINE 2% JELLY 5 ML TUBE TP ONE (12:04)
[2017-05-05] MEDS ORDERED: LIDOCAINE 1% 300 MG/30 ML SDV ONE (12:11)
[2017-05-05] MEDS ORDERED: LIDOCAINE 2% JELLY 5 ML TUBE ONE (12:14)
[2017-05-05] MEDS ORDERED: ACETAMINOPHEN 650 MG/20.3 ML UDCUP TUBE SCH (14:00)
--- NOTE | 2017-05-05 14:18 | GPN ---
[f rep st] PROCEDURE NOTE DATE OF PROCEDURE: 05/05/2017 PROCEDURE: Flexible fiberoptic bronchoscopy. REASON FOR PROCEDURE: Respiratory failure with retained secretions. PROCEDURE NOTE: The risks and benefits of the procedure were explained to the patient's son, who agr eed to proceed. The entire procedure was performed in the intensive care unit with the patient under blood pressure, EKG and oximetry monitoring. It was my assessment that there was no significant ris k of airborne infection from the procedure. After an appropriate timeout, 3 cc 1% lidocaine were ins tilled into the patient's endotracheal tube. The bronchoscope was advanced through the endotracheal tube, which was clear of secretions. There were no secretions in the trachea. In the right-sided ai rways, the right upper lobe was clear, but the right bronchus intermedius was occluded with mucopurul ent secretions. These were suctioned. I had to remove the bronchoscope twice to clear secretions fr om the channel. I was able to remove all secretions from the right-sided airways. They were primari ly emanating from the right lower lobe. I then turned to the left-sided airways, where I encountered a scant amount of secretions in the posterior segment of the left lower lobe. This was lavaged with a small volume of saline. I then returned to the right-sided airways, where I performed a lavage of the right lower lobe with return of clear fluid. All airways were clear of secretions at the end of the procedure. No sedation was used for the procedure. No specimens were obtained. There were no complications and no blood loss. /[id number]/MODL
[2017-05-05] MEDS ORDERED: METOPROLOL TARTRATE 25 MG TAB PO ONE (16:43)
[2017-05-05] MEDS: PATCH REMOVAL 1 EA PATCH TD SCH (20:05)
[2017-05-05] MEDS: fentaNYL/NACL 100 ML IV SCH (21:33)
[2017-05-06] MEDS: KETOROLAC 30 MG/1 ML SDV IVP SCH ×4 (03:26→19:38)
[2017-05-06] MEDS: hydrALAZINE 20 MG/ML VIAL IVP PRN ×3 (05:02→18:04)
[2017-05-06] MEDS: ATORVASTATIN CALCIUM 20 MG TAB TUBE SCH (08:58)
[2017-05-06] MEDS: CHLORHEXIDINE GLUCONATE 15 ML UDL PO SCH ×2 (08:58→19:38)
[2017-05-06] MEDS: LIDOCAINE 5% 1 EA PATCH TD SCH (08:59)
[2017-05-06] MEDS: HYDROCHLOROTHIAZIDE 25 MG TAB PO SCH (08:59)
[2017-05-06] MEDS: ERTAPENEM 1 GM in NS 100 ML IV SCH (08:59)
[2017-05-06] MEDS: levETIRAcetam 500 MG/5 ML UDCUP TUBE SCH ×2 (08:59→19:39)
[2017-05-06] MEDS: FAMOTIDINE 20 MG TAB TUBE SCH ×2 (08:59→19:38)
[2017-05-06] MEDS: LISINOPRIL 40 MG TAB TUBE SCH (09:00)
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
[2017-05-06] MEDS ORDERED: ALTEPLASE 2 MG VIAL IVP PRN (10:11)
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
[2017-05-06] MEDS: FUROSEMIDE 20 MG/2 ML VIAL IVP SCH ×2 (11:28→19:38)
[2017-05-06] MEDS: METOPROLOL TARTRATE 25 MG TAB PO SCH ×2 (11:29→19:38)
[2017-05-06] MEDS ORDERED: LIDOCAINE 2% JELLY 5 ML TUBE TP ONE (12:49)
[2017-05-06] MEDS ORDERED: LIDOCAINE 1% 300 MG/30 ML SDV MISC ONE (12:49)
[2017-05-06 14:39] LABS: ALANINE AMINOTRANSFERASE 98 IU/L (21-72); ALBUMIN 2.6 g/dL (3.5-5.0); ALKALINE PHOSPHATASE 86 IU/L (38-126); ANION GAP 10 mEq/L (8-16); ASPARTATE AMINOTRANSFERASE 78 IU/L (17-59); BILIRUBIN,TOTAL 0.8 mg/dL (0.1-1.4); CALCIUM 8.2 mg/dL (8.5-10.4); CARBON DIOXIDE 25 mEq/l (22-31); CHLORIDE 107 mEq/L (97-110); CREATININE 0.9 mg/dL (0.7-1.3); GLOMERULAR FILTRATION RATE > 60; GLUCOSE 117 mg/dL (70-100); POTASSIUM 3.4 mEq/L (3.5-5.2); SODIUM 142 mEq/L (134-144); TOTAL PROTEIN 5.5 g/dL (6.3-8.2)
[2017-05-06] MEDS ORDERED: ALBUMIN 25% 100 ML IV ONE (14:46)
--- NOTE | 2017-05-06 16:26 | TRAUMAPN ---
Assessment/Plan: - Problem/Surgery Performed (1) Closed right clavicular fracture Assessment/Plan: ortho consult Dr. Mills/operative intervention not recommended Qualifiers: Encounter type: initial encounter (2) Multiple rib fractures involving four or more ribs Assessment/Plan: continue supportive care/attempt wean from vent (3) Pneumothorax Assessment/Plan: CT out/will check repeat CXR - stable Qualifiers: Pneumothorax type: traumatic (4) Right acetabular fracture Assessment/Plan: ortho consult Dr. Mills-recommends non-operative Rx Qualifiers: Encounter type: initial encounter Sublocation of acetabulum: anterior wall Fracture alignment: nondisplaced (5) Subarachnoid hemorrhage, traumatic Assessment/Plan: stable on sequential CT/neurologically improved Qualifiers: Encounter type: subsequent encounter Loss of consciousness presence/ duration: with LOC of unspecified duration Qualified Code(s): S06.6X9D - Traumatic subarachnoid hemorrhage with loss of consciousness of unspecified duration, subsequent encounter (6) Aspiration pneumonia due to regurgitated food Assessment/Plan: most recent bronch cultures show Camila Qualifiers: Laterality: unspecified laterality Assessment/Plan: continue ventilatory support/sedation vacation for weaning assessment Hope to extubate in next 24-48 hours - some concern over mental status. If not trach, mid week Subjective: awake with spontaneous eye movement/able to follow commands intermitantly/ intubated Objective: Vital Signs Temp Pulse Resp BP Pulse Ox 36.8 C 61 16 134/53 H 99 05/06/17 16:00 05/06/17 16:00 05/06/17 16:00 05/06/17 16:00 05/06/17 16:00 Laboratory Results 05/05/17 04:30 05/06/17 14:15 05/05/17 05/06/17 05/07/17 05:59 05:59 05:59 Intake Total 3124 2413.3 Output Total 730 2950 1350 Balance 2394 -536.7 -1350 PT 13.4 SEC (12.0-15.0) 04/30/17 Unknown INR 1.03 (0.83-1.16) 04/30/17 Unknown - C-Spine Clearance Cervical Spine Cleared: No Physical Exam - Physical Exam General Appearance: WD/WN, no apparent distress, other (intubated and sedated) EENT: PERRL/EOMI, No scleral icterus (R), No scleral icterus (L) Neck: other (collar in place) Respiratory: other (coarse bilaterally, equal) Cardiac/Chest: regular rate, rhythm Abdomen: normal bowel sounds, non-tender, soft Skin: normal color, warm/dry Extremities: other (left strength greater than right) Neuro/Psych: motor weakness
[2017-05-06] MEDS: ACETAMINOPHEN 650 MG/20.3 ML UDCUP PO SCH (17:58)
[2017-05-06] MEDS: PATCH REMOVAL 1 EA PATCH TD SCH (19:39)
--- NOTE | 2017-05-06 21:11 | GPN ---
[f rep st] PROCEDURE NOTE DATE OF PROCEDURE: 05/06/2017 PROCEDURE: Flexible fiberoptic bronchoscopy. REASON FOR PROCEDURE: Respiratory failure with retained secretions. PROCEDURE NOTE: The risks and benefits of the procedure were explained to the patient's son, who agr eed to proceed. The entire procedure was performed in the intensive care unit with the patient under blood pressure, EKG, and oximetry monitoring. It was my assessment that there was no significant ri sk of airborne infection from the procedure. After an appropriate time-out, 3 cc of 1% lidocaine wer e instilled into the patient's endotracheal tube. The bronchoscope was advanced through the endotrac heal tube, into the main trachea. The endotracheal tube was just 1 cm above the nestor. There were some mucopurulent secretions in the distal endotracheal tube and around the main nestor which were serna ctioned. I had to remove the scope several times in order to clear secretions. I then advanced the scope to the left-sided airways, which had just scant purulent secretions which were easily suctioned . I then turned to the right-sided airways, where the right bronchus intermedius was again occluded with mucopurulent secretions which were easily suctioned. The right lower lobe was then lavaged, and all airways were clear of secretions at the end of the procedure. The patient received 50 mcg of fe ntanyl intravenously for analgesia. No specimens were sent. There was no blood loss or other compli cations apparent at the end of the procedure. /[id number]/MODL
[2017-05-07] MEDS: ACETAMINOPHEN 650 MG/20.3 ML UDCUP PO SCH ×5 (00:07→23:22)
[2017-05-07] MEDS: KETOROLAC 30 MG/1 ML SDV IVP SCH ×4 (02:05→20:14)
[2017-05-07 06:00] LABS: % IMMATURE GRANULYOCYTES 0.6 % (0.0-1.1); ABSOLUTE IMMATURE GRANULOCYTES 0.04 10^3/uL (0.00-0.10); ADD DIFF? NO; ADD MORPH? NO; ADD SCAN? NO; ATYPICAL LYMPHOCYTE FLAG 50 (0-99); FRAGMENT RBC FLAG 0 (0-99); HEMATOCRIT 28.3 % (40.0-51.0); HEMOGLOBIN 9.3 g/dL (13.7-17.5); LEFT SHIFT FLG 0 (0-99); LIPEMIA HEMOLYSIS FLAG 80 (0-99); MEAN CELL HEMOGLOBIN 29.7 pg (27.9-34.1); MEAN CELL HEMOGLOBIN CONCENTR. 32.9 g/dL (32.4-36.7); MEAN CELL VOLUME 90.4 fL (81.5-99.8); MEAN PLATELET VOLUME 10.7 fL (8.7-11.7); PLATELET CLUMPS FLAG 0 (0-99); PLATELET COUNT 160 10^3/uL (150-400); RED BLOOD CELL COUNT 3.13 10^6/uL (4.40-6.38); RED CELL DISTRIBUTION WIDTH 12.8 % (11.5-15.2)
[2017-05-07 06:28] LABS: ALANINE AMINOTRANSFERASE 92 IU/L (21-72); ALBUMIN 2.6 g/dL (3.5-5.0); ALKALINE PHOSPHATASE 93 IU/L (38-126); ANION GAP 9 mEq/L (8-16); ASPARTATE AMINOTRANSFERASE 74 IU/L (17-59); BILIRUBIN,TOTAL 0.9 mg/dL (0.1-1.4); CALCIUM 8.2 mg/dL (8.5-10.4); CARBON DIOXIDE 27 mEq/l (22-31); CHLORIDE 106 mEq/L (97-110); GLOMERULAR FILTRATION RATE > 60; GLUCOSE 87 mg/dL (70-100); POTASSIUM 3.4 mEq/L (3.5-5.2); SODIUM 142 mEq/L (134-144); TOTAL PROTEIN 5.4 g/dL (6.3-8.2)
[2017-05-07] MEDS: FUROSEMIDE 20 MG/2 ML VIAL IVP SCH ×2 (08:30→22:33)
[2017-05-07] MEDS: CHLORHEXIDINE GLUCONATE 15 ML UDL PO SCH ×2 (08:30→20:15)
[2017-05-07] MEDS: FAMOTIDINE 20 MG TAB TUBE SCH ×2 (08:31→20:14)
[2017-05-07] MEDS: LISINOPRIL 40 MG TAB TUBE SCH (08:31)
[2017-05-07] MEDS: HYDROCHLOROTHIAZIDE 25 MG TAB PO SCH (08:31)
[2017-05-07] MEDS: levETIRAcetam 500 MG/5 ML UDCUP TUBE SCH ×2 (08:31→20:14)
[2017-05-07] MEDS: LIDOCAINE 5% 1 EA PATCH TD SCH (08:32)
[2017-05-07] MEDS: ATORVASTATIN CALCIUM 20 MG TAB TUBE SCH (08:32)
[2017-05-07] MEDS: METOPROLOL TARTRATE 25 MG TAB PO SCH ×2 (08:32→20:14)
[2017-05-07] MEDS: ERTAPENEM 1 GM in NS 100 ML IV SCH (08:33)
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
[2017-05-07] MEDS ORDERED: LIDOCAINE 2% JELLY 5 ML TUBE TP ONE (11:15)
[2017-05-07] MEDS ORDERED: LIDOCAINE 1% 300 MG/30 ML SDV IF ONE (11:15)
[2017-05-07] MEDS ORDERED: MIDAZOLAM 2 MG/2 ML VIAL ONE (11:16)
[2017-05-07] MEDS ORDERED: MIDAZOLAM 2 MG/2 ML VIAL IVP ONE (11:30)
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
--- NOTE | 2017-05-07 12:30 | ASMTCMCOM ---
CM Note CM Note Notes: Patient extubated post-bronchoscopy today. Neuro status expected to improve; pt is responding to voice and simple commands already. Therapies to begin to work with patient when mental status allows. There is no CM discharge plan yet, however Anitha from [facility] inpatient rehab is following patient. Date Signed: 05/07/2017 12:29 PM Electronically Signed By:Meche Verduzco RN
--- NOTE | 2017-05-07 13:27 | GPN ---
[f rep st] PROCEDURE NOTE DATE OF PROCEDURE: 05/07/2017 REASON FOR PROCEDURE: The patient is on the ventilator status post status post aspiration, with pers istent secretions and atelectasis. DESCRIPTION OF PROCEDURE: The procedure was performed in the intensive care unit. Appropriate time- out was performed. Informed consent was obtained from the patient's son. N95 masks were worn. A ne gative pressure environment was not indicated. Topical anesthesia was accomplished with 10 cc of 1% lidocaine down the patient's endotracheal tube; 1 mg of Versed was used intravenously for conscious s edation. The fiberoptic bronchoscope was passed via an adapter on the end of the patient's endotracheal tube a nd into the distal trachea. There was evidence of easy collapsibility. There were [id number] secretions without thick mucous plugs. These were removed from the lower trachea, and from both the right side and the left side, without significant difficulty. No cultures were sent. Underlying julien michael appeared normal. The patient tolerated the procedure well. Oxygen saturations and vital signs during the procedure remained normal. Following the removal of secretions, and removal of the bronchoscope, the patient was extubated witho ut difficulty and placed on a nasal cannula. A weighted Dobbhoff-type feeding tube was then placed b y myself into the stomach without problems. Flushing the tube with air indicated that it was in appr opriate position in the patient's stomach. An abdominal film is pending at this time. ASSESSMENT: 1. Hgis-zw-gbemgzgb secretions, decreasing. 2. Successful extubation. 3. Placement of a weighted Dobbhoff gastric tube for feeding. /[id number]/MODL
[2017-05-07] MEDS: LABETALOL HCL 5 MG/ML 20 ML MDV IVP PRN (14:27)
[2017-05-07] MEDS: HYDROmorphONE/DILAUDID 1 MG/ML INJ IVP PRN ×4 (14:27→23:22)
[2017-05-07] MEDS: CYCLOBENZAPRINE 10 MG TAB TUBE PRN (14:29)
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
[2017-05-07] MEDS: PATCH REMOVAL 1 EA PATCH TD SCH (20:15)
[2017-05-07] MEDS ORDERED: PROTOCOL POTASSIUM 1 DOSE MISC PRN (22:47)
[2017-05-07] MEDS ORDERED: PROTOCOL MAGNESIUM 1 DOSE IV PRN (22:47)
[2017-05-07 23:02] LABS: POTASSIUM 3.3 mEq/L (3.5-5.2)
[2017-05-07] MEDS: POTASSIUM Cl (KCl) 50 ML IV SCH (23:22)
[2017-05-08] MEDS: POTASSIUM Cl (KCl) 50 ML IV SCH ×2 (00:17→00:18)
[2017-05-08] MEDS: KETOROLAC 30 MG/1 ML SDV IVP SCH ×4 (02:52→22:07)
[2017-05-08 04:20] LABS: % IMMATURE GRANULYOCYTES 0.6 % (0.0-1.1); ABSOLUTE IMMATURE GRANULOCYTES 0.04 10^3/uL (0.00-0.10); ADD DIFF? NO; ADD MORPH? NO; ADD SCAN? NO; ATYPICAL LYMPHOCYTE FLAG 50 (0-99); FRAGMENT RBC FLAG 0 (0-99); HEMATOCRIT 28.9 % (40.0-51.0); HEMOGLOBIN 9.4 g/dL (13.7-17.5); LEFT SHIFT FLG 0 (0-99); LIPEMIA HEMOLYSIS FLAG 80 (0-99); MEAN CELL HEMOGLOBIN 29.6 pg (27.9-34.1); MEAN CELL HEMOGLOBIN CONCENTR. 32.5 g/dL (32.4-36.7); MEAN CELL VOLUME 90.9 fL (81.5-99.8); MEAN PLATELET VOLUME 10.2 fL (8.7-11.7); PLATELET CLUMPS FLAG 0 (0-99); PLATELET COUNT 193 10^3/uL (150-400); RED BLOOD CELL COUNT 3.18 10^6/uL (4.40-6.38); RED CELL DISTRIBUTION WIDTH 12.5 % (11.5-15.2)
[2017-05-08] MEDS: HYDROmorphONE/DILAUDID 1 MG/ML INJ IVP PRN ×5 (04:30→22:32)
[2017-05-08 04:48] LABS: ALANINE AMINOTRANSFERASE 95 IU/L (21-72); ALBUMIN 2.8 g/dL (3.5-5.0); ALKALINE PHOSPHATASE 110 IU/L (38-126); ANION GAP 10 mEq/L (8-16); ASPARTATE AMINOTRANSFERASE 77 IU/L (17-59); BILIRUBIN,TOTAL 0.8 mg/dL (0.1-1.4); CALCIUM 8.3 mg/dL (8.5-10.4); CARBON DIOXIDE 28 mEq/l (22-31); CHLORIDE 105 mEq/L (97-110); CREATININE 1.1 mg/dL (0.7-1.3); GLOMERULAR FILTRATION RATE > 60; GLUCOSE 115 mg/dL (70-100); MAGNESIUM 1.9 mg/dL (1.6-2.3); POTASSIUM 3.8 mEq/L (3.5-5.2); SODIUM 143 mEq/L (134-144); TOTAL PROTEIN 5.6 g/dL (6.3-8.2)
[2017-05-08] MEDS: ACETAMINOPHEN 650 MG/20.3 ML UDCUP PO SCH ×3 (05:50→18:30)
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
[2017-05-08] MEDS ORDERED: POTASSIUM Cl (KCl) 50 ML IV ONE (07:59)
[2017-05-08] MEDS: LISINOPRIL 40 MG TAB TUBE SCH (08:13)
[2017-05-08] MEDS: METOPROLOL TARTRATE 25 MG TAB PO SCH ×2 (08:13→22:07)
[2017-05-08] MEDS: CHLORHEXIDINE GLUCONATE 15 ML UDL PO SCH ×2 (08:16→22:08)
[2017-05-08] MEDS: LIDOCAINE 5% 1 EA PATCH TD SCH (08:16)
[2017-05-08] MEDS: HYDROCHLOROTHIAZIDE 25 MG TAB TUBE SCH (08:16)
[2017-05-08] MEDS: FUROSEMIDE 20 MG/2 ML VIAL IVP SCH ×2 (08:16→22:08)
[2017-05-08] MEDS: ATORVASTATIN CALCIUM 20 MG TAB TUBE SCH (08:16)
[2017-05-08] MEDS: levETIRAcetam 500 MG/5 ML UDCUP TUBE SCH ×2 (08:16→22:07)
[2017-05-08] MEDS: FAMOTIDINE 20 MG TAB TUBE SCH ×2 (08:16→22:07)
[2017-05-08] MEDS: ERTAPENEM 1 GM in NS 100 ML IV SCH (08:36)
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
[2017-05-08] MEDS: LABETALOL HCL 5 MG/ML 20 ML MDV IVP PRN (14:17)
[2017-05-08 18:59] LABS: POTASSIUM 4.1 mEq/L (3.5-5.2)
[2017-05-08] MEDS: PATCH REMOVAL 1 EA PATCH TD SCH (22:08)
--- NOTE | 2017-05-08 22:39 | TRAUMAPN ---
Assessment/Plan: - Problem/Surgery Performed (1) Closed right clavicular fracture Assessment/Plan: ortho consult Dr. Mills/operative intervention not recommended Qualifiers: Encounter type: initial encounter (2) Multiple rib fractures involving four or more ribs Assessment/Plan: continue supportive care/extubated. Tachypneic. CT scan with bilateral pleural effusion, right worse than left. Will place chest tube (3) Pneumothorax Assessment/Plan: Resolved Qualifiers: Pneumothorax type: traumatic (4) Right acetabular fracture Assessment/Plan: ortho consult Dr. Mills-recommends non-operative Rx Qualifiers: Encounter type: subsequent encounter Sublocation of acetabulum: anterior wall Fracture alignment: nondisplaced (5) Subarachnoid hemorrhage, traumatic Assessment/Plan: stable on sequential CT/neurologically improved Qualifiers: Encounter type: subsequent encounter Loss of consciousness presence/ duration: with LOC of unspecified duration Qualified Code(s): S06.6X9D - Traumatic subarachnoid hemorrhage with loss of consciousness of unspecified duration, subsequent encounter Still not responding well. Will respond to some commands on occasion (6) Aspiration pneumonia due to regurgitated food Assessment/Plan: most recent bronch cultures show Camila Qualifiers: Laterality: unspecified laterality Assessment/Plan: If does not improve, will need trach and to be put back on the vent Subjective: awake with spontaneous eye movement/able to follow commands intermitantly/ Objective: Vital Signs Temp Pulse Resp BP Pulse Ox 36.8 C 65 27 H 123/61 H 97 05/08/17 16:00 05/08/17 22:00 05/08/17 22:00 05/08/17 22:00 05/08/17 22:00 Laboratory Results 05/08/17 04:05 05/08/17 18:20 05/07/17 05/08/17 05/09/17 05:59 05:59 05:59 Intake Total 1806 1791 1330 Output Total 1173 3970 0 Balance -669 -789 -720 PT 13.4 SEC (12.0-15.0) 04/30/17 Unknown INR 1.03 (0.83-1.16) 04/30/17 Unknown - C-Spine Clearance Cervical Spine Cleared: No Physical Exam - Physical Exam General Appearance: WD/WN, no apparent distress, No alert EENT: PERRL/EOMI, normal ENT inspection, other (feeding tube in place) Neck: other (tim[place] J) Respiratory: lungs clear (decreased at bases), No chest non-tender Cardiac/Chest: regular rate, rhythm Abdomen: normal bowel sounds, non-tender, soft Skin: warm/dry Extremities: swelling, No normal range of motion Neuro/Psych: No alert
[2017-05-09] MEDS: ACETAMINOPHEN 650 MG/20.3 ML UDCUP PO SCH ×4 (00:07→17:47)
[2017-05-09] MEDS: HYDROmorphONE/DILAUDID 1 MG/ML INJ IVP PRN ×6 (00:35→22:36)
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
[2017-05-09 05:34] LABS: ANION GAP 6 mEq/L (8-16); CALCIUM 8.3 mg/dL (8.5-10.4); CARBON DIOXIDE 31 mEq/l (22-31); CHLORIDE 105 mEq/L (97-110); CREATININE 1.2 mg/dL (0.7-1.3); GLOMERULAR FILTRATION RATE 58; GLUCOSE 150 mg/dL (70-100); MAGNESIUM 2.3 mg/dL (1.6-2.3); POTASSIUM 4.1 mEq/L (3.5-5.2); SODIUM 142 mEq/L (134-144)
[2017-05-09] MEDS: levETIRAcetam 500 MG/5 ML UDCUP TUBE SCH (08:05)
[2017-05-09] MEDS: HYDROCHLOROTHIAZIDE 25 MG TAB TUBE SCH (08:05)
[2017-05-09] MEDS: ATORVASTATIN CALCIUM 20 MG TAB TUBE SCH (08:05)
[2017-05-09] MEDS: FUROSEMIDE 20 MG/2 ML VIAL IVP SCH (08:05)
[2017-05-09] MEDS: LISINOPRIL 40 MG TAB TUBE SCH (08:05)
[2017-05-09] MEDS: FAMOTIDINE 20 MG TAB TUBE SCH (08:05)
[2017-05-09] MEDS: ERTAPENEM 1 GM in NS 100 ML IV SCH (08:05)
[2017-05-09] MEDS: CHLORHEXIDINE GLUCONATE 15 ML UDL PO SCH (08:05)
[2017-05-09] MEDS: METOPROLOL TARTRATE 25 MG TAB PO SCH (08:05)
[2017-05-09] MEDS: LIDOCAINE 5% 1 EA PATCH TD SCH ×2 (08:06→09:00)
--- NOTE | 2017-05-09 08:30 | TRAUMAPN ---
- Problem/Surgery Performed (1) Closed right clavicular fracture Assessment/Plan: ortho consult Dr. Mills/operative intervention not recommended Qualifiers: Encounter type: initial encounter (2) Multiple rib fractures involving four or more ribs Assessment/Plan: s/p replacement of right chest tube/serous output will remove when output less than 100ml/day (3) Pneumothorax Assessment/Plan: resolved Qualifiers: Pneumothorax type: traumatic (4) Right acetabular fracture Assessment/Plan: ortho consult Dr. Mills-recommends non-operative Rx Qualifiers: Encounter type: initial encounter Sublocation of acetabulum: anterior wall Fracture alignment: nondisplaced (5) Subarachnoid hemorrhage, traumatic Assessment/Plan: stable on sequential CT/neurologically improved/prior CVA with residual defecits Qualifiers: Encounter type: subsequent encounter Loss of consciousness presence/ duration: with LOC of unspecified duration Qualified Code(s): S06.6X9D - Traumatic subarachnoid hemorrhage with loss of consciousness of unspecified duration, subsequent encounter (6) Aspiration pneumonia due to regurgitated food Assessment/Plan: resolving clinically Qualifiers: Laterality: unspecified laterality Assessment/Plan: continue ICU observation/care may need re-intubation with significant work of breathing currently Objective: Vital Signs Temp Pulse Resp BP Pulse Ox 37 C 89 48 H 152/76 H 96 05/09/17 08:00 05/09/17 08:00 05/09/17 08:00 05/09/17 08:00 05/09/17 08:00 Laboratory Results 05/08/17 04:05 05/09/17 05:00 05/08/17 05/09/17 05/10/17 05:59 05:59 05:59 Intake Total 1791 2404 Output Total 2350 2770 Balance -559 -366 PT 13.4 SEC (12.0-15.0) 04/30/17 Unknown INR 1.03 (0.83-1.16) 04/30/17 Unknown - C-Spine Clearance Cervical Spine Cleared: No Physical Exam - Physical Exam General Appearance: unresponsive Respiratory: respiratory distress, accessory muscle use, decreased breath sounds , splinting, pain on movement Cardiac/Chest: regular rate, rhythm, tachycardia Abdomen: normal bowel sounds, soft, distended Male Genitalia: deferred Rectal: deferred Skin: normal color, warm/dry Neuro/Psych: other (sedated/difficult to assess)
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
--- NOTE | 2017-05-09 12:13 | ASMTCMCOM ---
CM Note CM Note Notes: Patient's family met with neurology specialist, general surgeon, and or director and made decision to proceed with tracheostomy and PEG tube placement. Patient will go to OR today for both procedures. Although too early to begin discharge planning, anticipate patient will need senior care acute care facility d/t the above. CM will follow. Date Signed: 05/09/2017 12:12 PM Electronically Signed By:Meche Verduzco RN
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
[2017-05-09 16:41] LABS: INR 1.12 (0.83-1.16); PROTIME(PATIENT) 14.3 SEC (12.0-15.0)
[2017-05-09 18:36] LABS: POTASSIUM 4.6 mEq/L (3.5-5.2)
--- NOTE | 2017-05-09 18:44 | PDANEPAE ---
ANE History of Present Illness trach, peg ANE Past Medical History - Cardiovascular History Hx Hypertension: Yes Hx Arrhythmias: No Hx Chest Pain: No Hx Coronary Artery / Peripheral Vascular Disease: No Hx CHF / Valvular Disease: No Hx Palpitations: No - Pulmonary History Hx COPD: No Hx Asthma/Reactive Airway Disease: No Hx Recent Upper Respiratory Infection: No Hx Oxygen in Use at Home: No Hx Sleep Apnea: No Sleep Apnea Screening Result - Last Documented: Positive Pulmonary History Comment: multiple rib fx, aspiration - Neurologic History Hx Cerebrovascular Accident: Yes - Endocrine History Hx Diabetes: No - Renal History Hx Renal Disorders: No ANE Review of Systems Review of Systems: - Exercise capacity Exercise capacity: unable to assess ANE Patient History - Allergies Allergies/Adverse Reactions: No Known Allergies Allergy (Unverified 04/30/17 15:05) - Home Medications Home Medications: Atorvastatin Calcium [Lipitor 20 mg (*)] 20 mg PO DAILY 05/01/17 [Last Taken Unknown] Hydrochlorothiazide [HCTZ (*)] 12.5 mg PO DAILY 05/01/17 [Last Taken Unknown] Lisinopril [Zestril 40 mg (*)] 40 mg PO DAILY 05/01/17 [Last Taken Unknown] Tamsulosin HCl [Flomax 0.4 MG (*)] 0.4 mg PO DAILY 05/01/17 [Last Taken Unknown] - NPO status NPO Status: no food or drink >8 hours NPO Since - Liquids (Date): 05/09/17 NPO Since - Liquids (Time): 10:15 - Smoking Hx Smoking Status: Former smoker ANE Labs/Vital Signs - Labs Result Diagrams: 05/08/17 04:05 05/09/17 18:00 - Vital Signs Blood Pressure: 114/58 Heart Rate: 80 Respiratory Rate: 47 O2 Sat (%): 94 Height: 157.48 cm Weight: 65.6 kg ANE Physical Exam - Airway Neck exam: C-collar in place Mallampati Score: Class 2 Mouth exam: normal dental/mouth exam - Pulmonary Pulmonary: respiratory distress - Cardiovascular Cardiovascular: tachycardia - ASA Status ASA Status: IV ANE Anesthesia Plan Anesthesia Plan: general endotracheal anesthesia
[2017-05-09] MEDS ORDERED: SUCCINYLCHOLINE CHLORIDE*ANESTHESIA ONLY*200 MG/10 ML SYR IVP ONE (18:47)
[2017-05-09] MEDS ORDERED: ROCURONIUM 50 MG/5 ML VIAL ONE (18:47)
[2017-05-09] MEDS ORDERED: LIDOCAINE 2% 5 ML SDV ONE (18:50)
[2017-05-09] MEDS ORDERED: fentaNYL 100 MCG/2 ML INJ ONE (18:50)
[2017-05-09] MEDS ORDERED: PROPOFOL 200 MG/20 ML VIAL ONE (18:50)
[2017-05-09] MEDS ORDERED: PHENYLEPHRINE HCL 100 MCG/ML SYR ONE ×2 (19:04→19:55)
[2017-05-09] MEDS ORDERED: BUPIVACAINE 0.25% 30 ML SDV ONE (19:47)
[2017-05-09] MEDS ORDERED: PHENYLEPHRINE 10 MG/ML SDV ONE (19:55)
--- NOTE | 2017-05-09 20:17 | POSTOPPROG ---
Post Op Note Date of Operation: 05/09/17 Surgeon: Lalito Webb (, FACS) Anesthesiologist: Hank Rea MD Anesthesia: GET(General Endotracheal) Pre-op Diagnosis: ventilatory failure/multiple trauma Procedure: tracheostomy Inf/Abcess present in the surg proc area at time of surgery?: No EBL: Minimal
--- NOTE | 2017-05-09 20:34 | POSTANESTH ---
Post Anesthetic Evaluation Cardiovascular Status: Normal, Stable Respiratory Status: Other, See Comment (stable on vent) Level of Consciousness/Mental Status: Unconscious Pain Control: Adequate, Prn Tx Ordered Nausea/Vomiting Control: Adequate, Prn Tx Ordered Complications Possibly Related to Anesthesia: None Noted
[2017-05-09] MEDS ORDERED: NALOXONE HCL 0.4 MG/ML INJ IVP PRN (20:35)
[2017-05-09 21:31] LABS: BASE EXCESS 3.8 mEq/L (-2.5-2.5); BICARBONATE 28 mEq/L (22-26); MEASURED OXYGEN SATURATION 99 % (92-95); PCO2 41 mmHg (34-38); PO2 118 mmHg (65-75); TCO2 29 mEq/L (23-27)
[2017-05-09 21:32] LABS: O2 CONCENTRATIION 100 % (0-100); P/F RATIO 118 RATIO; SIMV YES
[2017-05-09 21:33] LABS: PATIENT RATE 16; PIP 20.2; PRESSURE SUPPORT 7
[2017-05-09] MEDS ORDERED: levETIRAcetam 500 MG in NS 100 ML IV ONE (22:15)
[2017-05-10] MEDS: FAMOTIDINE 20 MG/NACL 50 ML IV SCH ×3 (00:11→20:04)
[2017-05-10] MEDS: FUROSEMIDE 20 MG/2 ML VIAL IVP SCH ×3 (00:11→20:04)
[2017-05-10] MEDS: ACETAMINOPHEN 650 MG/20.3 ML UDCUP PO SCH ×4 (00:17→16:12)
[2017-05-10] MEDS: CHLORHEXIDINE GLUCONATE 15 ML UDL PO SCH ×3 (00:17→20:04)
[2017-05-10] MEDS: METOPROLOL TARTRATE 25 MG TAB PO SCH ×3 (00:18→20:03)
[2017-05-10] MEDS: PATCH REMOVAL 1 EA PATCH TD SCH ×2 (00:18→23:34)
[2017-05-10] MEDS: HYDROmorphONE/DILAUDID 1 MG/ML INJ IVP PRN ×3 (03:49→16:00)
[2017-05-10 04:30] LABS: BICARBONATE 28 mEq/L (22-26); MEASURED OXYGEN SATURATION 94 % (92-95); PCO2 39 mmHg (34-38); PO2 70 mmHg (65-75); TCO2 30 mEq/L (23-27)
[2017-05-10 04:31] LABS: O2 CONCENTRATIION 40 % (0-100); P/F RATIO 175 RATIO; PATIENT RATE 20; PIP 20.8; PRESSURE SUPPORT 10; SIMV YES
[2017-05-10 04:44] LABS: % IMMATURE GRANULYOCYTES 0.5 % (0.0-1.1); ABSOLUTE IMMATURE GRANULOCYTES 0.04 10^3/uL (0.00-0.10); ADD DIFF? NO; ADD MORPH? NO; ADD SCAN? NO; ATYPICAL LYMPHOCYTE FLAG 10 (0-99); FRAGMENT RBC FLAG 0 (0-99); HEMATOCRIT 28.6 % (40.0-51.0); HEMOGLOBIN 9.1 g/dL (13.7-17.5); LEFT SHIFT FLG 0 (0-99); LIPEMIA HEMOLYSIS FLAG 80 (0-99); MEAN CELL HEMOGLOBIN 29.5 pg (27.9-34.1); MEAN CELL HEMOGLOBIN CONCENTR. 31.8 g/dL (32.4-36.7); MEAN CELL VOLUME 92.9 fL (81.5-99.8); MEAN PLATELET VOLUME 10.3 fL (8.7-11.7); PLATELET CLUMPS FLAG 0 (0-99); PLATELET COUNT 244 10^3/uL (150-400); RED BLOOD CELL COUNT 3.08 10^6/uL (4.40-6.38)
[2017-05-10 05:09] LABS: ALANINE AMINOTRANSFERASE 67 IU/L (21-72); ALBUMIN 2.7 g/dL (3.5-5.0); ALKALINE PHOSPHATASE 140 IU/L (38-126); ANION GAP 9 mEq/L (8-16); ASPARTATE AMINOTRANSFERASE 47 IU/L (17-59); CALCIUM 8.2 mg/dL (8.5-10.4); CARBON DIOXIDE 28 mEq/l (22-31); CHLORIDE 107 mEq/L (97-110); CREATININE 1.2 mg/dL (0.7-1.3); GLOMERULAR FILTRATION RATE 58; GLUCOSE 116 mg/dL (70-100); POTASSIUM 4.1 mEq/L (3.5-5.2); SODIUM 144 mEq/L (134-144); TOTAL PROTEIN 5.6 g/dL (6.3-8.2)
--- NOTE | 2017-05-10 05:54 | GOP ---
[f rep st] OPERATIVE REPORT DATE OF OPERATION: 05/09/2017 SURGEON: Lalito Webb MD, FACS ANESTHESIA: General endotracheal. ANESTHESIOLOGIST: Hank Rea MD. PREOPERATIVE DIAGNOSIS: Ventilatory failure. POSTOPERATIVE DIAGNOSIS: Ventilatory failure. PROCEDURE PERFORMED: Placement of tracheostomy. FINDINGS: Moderate hypoxemia after intubation in the operating room, VS 6.5 endotracheal tube, and diminished breath sounds in the left chest. Intraoperative chest x-ray showing left upper lobe infiltrate versus atelectasis. Oxygenation improved after aggressive suctioning via endotracheal tube and subsequently via tracheostomy. No evidence of pneumothorax. Findings at surgery include extremely short neck with difficult access to the trachea. Tracheostomy performed just below the 1st tracheal ring. #7.0 fenestrated Portex tracheostomy placed. ESTIMATED BLOOD LOSS: For the procedure was 2 mL. DESCRIPTION OF PROCEDURE: After informed consent was obtained from the patient' s son, he was brought to the operating room and placed under general anesthesia via endotracheal tube. Patient had been previously intubated for approximately 9 days, was extubated and this demonstrated progressive ventilatory failure over the past 36 hours. His tube feedings were held preoperatively and Dr. George proceeded to perform a percutaneous endoscopic gastrostomy tube. This will be dictated as a separate operative report. After this was completed, reassessment of the patient was performed because of his hypoxemia. He was suctioned. A chest x-ray was obtained which showed the endotracheal tube to be in good position and he had a new left upper lobe infiltrate. His chest tube dressings were changed and his chest tube was placed to suction. There was no pneumothorax or significant pleural effusion on either side. The neck was prepped and draped in the usual fashion in a neutral position after removing the anterior portion of the cervical collar and before proceeding, a 2nd time- out was performed. The larynx was presented approximately 2 cm above the sternal notch. The skin between the 2 was infiltrated with 0.25% Marcaine, incised transversely and dissection carried out down to the trachea at the level of the cricothyroid membrane. The 1st tracheal ring was identified and secured with a 2-0 silk suture. Gentle traction was applied to pull the trachea up from the mediastinum and the trachea was incised transversely just below the 1st tracheal ring. This appeared to be the safest approach that was not my conventional form of tracheostomy placement. Tracheal school athletic director was placed. Hemostasis was secured. There was no cautery used once the airway was opened. A #7.0 Portex fenestrated catheter was placed into the trachea. The balloon was inflated and secured and an inner cannula placed. The tracheostomy was then secured to the skin with 2-0 nylon suture and circumferential padded tracheostomy retention device was applied. Sterile dressings were placed. The patient was suctioned via the tracheostomy and copious secretions were obtained and ventilation seem to improve shortly thereafter. The patient was subsequently transported to the intensive care unit directly, intubated and on mechanical ventilatory support. COMPLICATIONS: None. /[id number]/MODL MTDD
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
[2017-05-10] MEDS: LIDOCAINE 5% 1 EA PATCH TD SCH (08:27)
[2017-05-10] MEDS: ERTAPENEM 1 GM in NS 100 ML IV SCH (08:28)
[2017-05-10] MEDS: levETIRAcetam 500 MG/5 ML UDCUP TUBE SCH ×2 (09:03→20:03)
[2017-05-10] MEDS: HYDROCHLOROTHIAZIDE 25 MG TAB TUBE SCH (09:04)
[2017-05-10] MEDS: ATORVASTATIN CALCIUM 20 MG TAB TUBE SCH (09:04)
[2017-05-10] MEDS: LISINOPRIL 40 MG TAB TUBE SCH (09:04)
--- NOTE | 2017-05-10 09:13 | SOAPPROG ---
SOAP Progress Note Assessment/Plan: Assessment:Plan: 1) s/p PEG - looks good, site clean and dry, BS good, abdo soft. 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 pt not communicative, does follow with his eyes Objective: Vital Signs Temp Pulse Resp BP Pulse Ox 36.8 C 73 21 H 134/72 H 97 05/10/17 08:00 05/10/17 09:04 05/10/17 08:00 05/10/17 09:04 05/10/17 08:00 Laboratory Results 05/10/17 04:30 05/10/17 04:30 05/09/17 05/10/17 05/11/17 05:59 05:59 05:59 Intake Total 2404 1478 Output Total 2770 0435 Balance -366 -1467 PT 14.3 SEC (12.0-15.0) 05/09/17 16:20 INR 1.12 (0.83-1.16) 05/09/17 16:20 coarse bs s1s2 +BS, soft, mild tenderness no r/g ICD10 Worksheet Patient Problems: Problems Problem Status Onset Abrasions of multiple sites Acute Aspiration pneumonia due to regurgitated food Acute Closed right clavicular fracture Acute Malnutrition Acute Multiple rib fractures involving four or more ribs Acute Pneumothorax Acute Respiratory insufficiency Acute Right acetabular fracture Acute Subarachnoid hemorrhage, traumatic Acute Traumatic pneumothorax Acute
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
[2017-05-10] MEDS: ENOXAPARIN 40 MG/0.4 ML SYR SC SCH (10:50)
[2017-05-10] MEDS ORDERED: LIDOCAINE 2% JELLY 5 ML TUBE TP ONE (11:04)
[2017-05-10] MEDS ORDERED: MIDAZOLAM 2 MG/2 ML VIAL ONE (11:09)
[2017-05-10] MEDS ORDERED: LIDOCAINE 2% JELLY 5 ML TUBE ONE (11:16)
[2017-05-10] MEDS ORDERED: LIDOCAINE 1% 300 MG/30 ML SDV ONE (11:17)
[2017-05-10] MEDS ORDERED: LIDOCAINE 1% 300 MG/30 ML SDV IF ONE (11:19)
[2017-05-10] MEDS ORDERED: MIDAZOLAM 2 MG/2 ML VIAL IVP ONE (11:30)
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
[2017-05-10] MEDS ORDERED: oxyCODONE ORAL SOLUTION 10 MG/0.5 ML UDSYR PO PRN (12:13)
--- NOTE | 2017-05-10 12:30 | GPN ---
[f rep st] PROCEDURE NOTE DATE OF PROCEDURE: 05/10/2017 PROCEDURE: Therapeutic bronchoscopy. REASON FOR BRONCHOSCOPY: Status post aspiration pneumonia, secretions, and the patient now status po st tracheostomy on the ventilator. PROCEDURE NOTE: The procedure was performed in the intensive care unit in the patient's room. Appro priate time-out was performed. Informed consent was obtained from the patient's son. N95 masks and a negative pressure environment were not required. 2 mg of Versed was used intravenously for conscio us sedation. Approximately 10 mL of 1% lidocaine was placed down the patient's tracheostomy tube susan or to the procedure for topical anesthesia. The fiberoptic bronchoscope was passed via an adapter on the end of the patient's tracheostomy tube i nto the distal trachea, and from there into the lower tracheobronchial tree. All areas were observed to at least the segmental level. Anatomy was normal bilaterally. There were moderate secretions fo und bilaterally without any evidence of mucous plugging. The secretions were somewhat tenacious and mildly purulent. Secretions were removed with suction and lavage. Cultures were sent. There were n o complications. Vital signs and oxygen saturations on the ventilator remained stable throughout the procedure. IMPRESSION: 1. Moderate bilateral secretions, significantly decreased and with little purulence. 2. Normal endobronchial anatomy. /[id number]/MODL
--- NOTE | 2017-05-10 14:04 | ASMTCMCOM ---
CM Note CM Note Notes: Spoke w/Dr Selvin Ayala today about pt's dc poc; he said that tomorrow we should discuss LTAC w/family. CM w/f and meet w/family tomorrow to discuss. Date Signed: 05/10/2017 02:03 PM Electronically Signed By:Dafne Mccallum RN
[2017-05-10 18:15] LABS: POTASSIUM 3.9 mEq/L (3.5-5.2)
[2017-05-10] MEDS: HYDROGEN PEROXIDE 236 ML BOTTLE TP SCH (20:04)
[2017-05-11] MEDS ORDERED: POTASSIUM Cl (KCl) 50 ML IV ONE ×3 (00:35→17:12)
[2017-05-11] MEDS: ACETAMINOPHEN 650 MG/20.3 ML UDCUP PO SCH ×2 (00:50→07:08)
[2017-05-11 04:51] LABS: % IMMATURE GRANULYOCYTES 0.4 % (0.0-1.1); ABSOLUTE IMMATURE GRANULOCYTES 0.03 10^3/uL (0.00-0.10); ADD DIFF? NO; ADD MORPH? NO; ADD SCAN? NO; ATYPICAL LYMPHOCYTE FLAG 10 (0-99); FRAGMENT RBC FLAG 0 (0-99); HEMATOCRIT 26.8 % (40.0-51.0); HEMOGLOBIN 8.6 g/dL (13.7-17.5); LEFT SHIFT FLG 0 (0-99); LIPEMIA HEMOLYSIS FLAG 80 (0-99); MEAN CELL HEMOGLOBIN 29.8 pg (27.9-34.1); MEAN CELL HEMOGLOBIN CONCENTR. 32.1 g/dL (32.4-36.7); MEAN CELL VOLUME 92.7 fL (81.5-99.8); MEAN PLATELET VOLUME 10.8 fL (8.7-11.7); PLATELET CLUMPS FLAG 10 (0-99); PLATELET COUNT 261 10^3/uL (150-400); RED BLOOD CELL COUNT 2.89 10^6/uL (4.40-6.38); RED CELL DISTRIBUTION WIDTH 12.9 % (11.5-15.2)
[2017-05-11 05:08] LABS: ALANINE AMINOTRANSFERASE 100 IU/L (21-72); ALBUMIN 2.6 g/dL (3.5-5.0); ALKALINE PHOSPHATASE 166 IU/L (38-126); ANION GAP 8 mEq/L (8-16); ASPARTATE AMINOTRANSFERASE 110 IU/L (17-59); BILIRUBIN,TOTAL 0.9 mg/dL (0.1-1.4); BILIRUBIN-CONJUGATED 0.3 mg/dL (0.0-0.5); BILIRUBIN-UNCONJUGATED 0.6 mg/dL (0.0-1.1); CALCIUM 8.3 mg/dL (8.5-10.4); CARBON DIOXIDE 29 mEq/l (22-31); CHLORIDE 106 mEq/L (97-110); CREATININE 1.2 mg/dL (0.7-1.3); GLOMERULAR FILTRATION RATE 58; GLUCOSE 132 mg/dL (70-100); MAGNESIUM 2.2 mg/dL (1.6-2.3); POTASSIUM 3.9 mEq/L (3.5-5.2); SODIUM 143 mEq/L (134-144); TOTAL PROTEIN 5.5 g/dL (6.3-8.2)
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
[2017-05-11] MEDS: FAMOTIDINE 20 MG/NACL 50 ML IV SCH (08:41)
[2017-05-11] MEDS: HYDROCHLOROTHIAZIDE 25 MG TAB TUBE SCH (08:42)
[2017-05-11] MEDS: ATORVASTATIN CALCIUM 20 MG TAB TUBE SCH (08:42)
[2017-05-11] MEDS: CHLORHEXIDINE GLUCONATE 15 ML UDL PO SCH ×2 (08:42→21:14)
[2017-05-11] MEDS: METOPROLOL TARTRATE 25 MG TAB PO SCH (08:42)
[2017-05-11] MEDS: LIDOCAINE 5% 1 EA PATCH TD SCH (08:42)
[2017-05-11] MEDS: LISINOPRIL 40 MG TAB TUBE SCH (08:42)
[2017-05-11] MEDS: ENOXAPARIN 40 MG/0.4 ML SYR SC SCH (08:42)
[2017-05-11] MEDS: levETIRAcetam 500 MG/5 ML UDCUP TUBE SCH ×2 (08:42→21:14)
[2017-05-11] MEDS: FUROSEMIDE 20 MG/2 ML VIAL IVP SCH ×2 (08:43→21:14)
[2017-05-11] MEDS: HYDROGEN PEROXIDE 236 ML BOTTLE TP SCH ×2 (08:43→21:15)
[2017-05-11] MEDS: NS 1,000 ML IV SCH (09:36)
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
[2017-05-11] MEDS: ACETAMINOPHEN 650 MG/20.3 ML UDCUP TUBE SCH ×3 (12:04→23:29)
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
--- NOTE | 2017-05-11 13:38 | SOAPPROG ---
SOAP Progress Note Assessment/Plan: Assessment:Plan: 1) s/p PEG - looks good, site clean and dry, BS good, abdo soft. OK to neisha PEG for feeds and meds other recs: gauze over bumper not under bumper clean site with 50% hydrogen peroxide q shift turn bumper 90 degrees q shift I will return tomorrow to loosen bumper 05/10/17 09:10 05/11/17 13:36 1) PEG - working well. no issues loosened bumper so not as tight on skin. If it leaks please contact us. I will ask my partner just to look at PEG over weekend If any issue please contact us Subjective: CC - [facility] feeding tube pt tracks with eyes Objective: Vital Signs Temp Pulse Resp BP Pulse Ox 36.9 C 95 40 H 170/93 H 100 05/11/17 12:00 05/11/17 12:00 05/11/17 12:00 05/11/17 12:00 05/11/17 12:00 Microbiology 05/10/17 12:00 - Final Sputum, Induced/Suctioned Laboratory Results 05/11/17 04:30 05/11/17 04:30 05/10/17 05/11/17 05/12/17 05:59 05:59 05:59 Intake Total 1478 2378 Output Total 2945 1640 1300 Balance -1467 -112 -1300 PT 14.3 SEC (12.0-15.0) 05/09/17 16:20 INR 1.12 (0.83-1.16) 05/09/17 16:20 eyes open +BS soft NT PEG site clean and dry ICD10 Worksheet Patient Problems: Problems Problem Status Onset Abrasions of multiple sites Acute Aspiration pneumonia due to regurgitated food Acute Closed right clavicular fracture Acute Malnutrition Acute Multiple rib fractures involving four or more ribs Acute Pneumothorax Acute Respiratory insufficiency Acute Right acetabular fracture Acute Subarachnoid hemorrhage, traumatic Acute Traumatic pneumothorax Acute
--- NOTE | 2017-05-11 16:49 | ASMTCMCOM ---
CM Note CM Note Notes: Discussed dc poc in rounds today for pt to go to LTAC likely next week. Met w/pt's son, Avery ([phone]) and his girlfriend to discuss. They will research some of the LTAC facilities and get back to us with their choices. REferral started and faxed to [facility] since this was one of the facilities we discussed. RESHMA w/f. Date Signed: 05/11/2017 04:49 PM Electronically Signed By:Dafne Mccallum RN
[2017-05-11 17:01] LABS: POTASSIUM 3.8 mEq/L (3.5-5.2)
[2017-05-11] MEDS: POTASSIUM Cl (KCl) 50 ML IV SCH ×2 (17:25→18:22)
[2017-05-11] MEDS: PATCH REMOVAL 1 EA PATCH TD SCH (21:15)
[2017-05-11] MEDS: METOPROLOL TARTRATE 25 MG TAB TUBE SCH (21:15)
[2017-05-12 03:38] LABS: HEMOGLOBIN 8.7 g/dL (13.7-17.5); MEAN CELL HEMOGLOBIN 29.7 pg (27.9-34.1); MEAN CELL HEMOGLOBIN CONCENTR. 32.2 g/dL (32.4-36.7); MEAN CELL VOLUME 92.2 fL (81.5-99.8); RED BLOOD CELL COUNT 2.93 10^6/uL (4.40-6.38); RED CELL DISTRIBUTION WIDTH 12.8 % (11.5-15.2)
[2017-05-12 04:02] LABS: ALANINE AMINOTRANSFERASE 337 IU/L (21-72); ALBUMIN 2.5 g/dL (3.5-5.0); ALKALINE PHOSPHATASE 230 IU/L (38-126); ANION GAP 7 mEq/L (8-16); ASPARTATE AMINOTRANSFERASE 495 IU/L (17-59); BILIRUBIN-CONJUGATED 0.3 mg/dL (0.0-0.5); BILIRUBIN-UNCONJUGATED 0.7 mg/dL (0.0-1.1); CALCIUM 8.6 mg/dL (8.5-10.4); CARBON DIOXIDE 31 mEq/l (22-31); CHLORIDE 102 mEq/L (97-110); CREATININE 1.1 mg/dL (0.7-1.3); GLOMERULAR FILTRATION RATE > 60; GLUCOSE 130 mg/dL (70-100); POTASSIUM 3.7 mEq/L (3.5-5.2); SODIUM 140 mEq/L (134-144); TOTAL PROTEIN 5.8 g/dL (6.3-8.2)
[2017-05-12] MEDS ORDERED: POTASSIUM Cl (KCl) 50 ML IV ONE (04:13)
[2017-05-12] MEDS ORDERED: POTASSIUM Cl (KCl) 100 ML IV ONE (04:30)
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
[2017-05-12] MEDS: ACETAMINOPHEN 650 MG/20.3 ML UDCUP TUBE SCH (06:42)
[2017-05-12] MEDS: METOPROLOL TARTRATE 25 MG TAB TUBE SCH ×2 (08:02→20:35)
[2017-05-12] MEDS: ATORVASTATIN CALCIUM 20 MG TAB TUBE SCH (08:02)
[2017-05-12] MEDS: ENOXAPARIN 40 MG/0.4 ML SYR SC SCH (08:02)
[2017-05-12] MEDS: levETIRAcetam 500 MG/5 ML UDCUP TUBE SCH ×2 (08:02→20:34)
[2017-05-12] MEDS: CHLORHEXIDINE GLUCONATE 15 ML UDL PO SCH ×2 (08:02→20:28)
[2017-05-12] MEDS: LIDOCAINE 5% 1 EA PATCH TD SCH (08:03)
[2017-05-12] MEDS: HYDROGEN PEROXIDE 236 ML BOTTLE TP SCH ×2 (08:03→20:29)
[2017-05-12] MEDS: LISINOPRIL 40 MG TAB TUBE SCH (08:03)
[2017-05-12] MEDS: FAMOTIDINE 20 MG TAB TUBE SCH (08:03)
[2017-05-12] MEDS: FUROSEMIDE 20 MG/2 ML VIAL IVP SCH ×2 (08:03→20:36)
[2017-05-12] MEDS: HYDROCHLOROTHIAZIDE 25 MG TAB TUBE SCH (08:03)
[2017-05-12] MEDS ORDERED: MAGNESIUM HYDROXIDE 30 ML UDCUP PO PRN (08:11)
[2017-05-12] MEDS ORDERED: LACTULOSE 20 GM/30 ML UDCUP PO PRN (08:11)
[2017-05-12] MEDS ORDERED: BISACODYL 10 MG SUPP PR PRN (08:11)
[2017-05-12] MEDS ORDERED: POLYETHYLENE GLYCOL 3350 17 GM PKT PO PRN (08:11)
[2017-05-12] MEDS: SENNOSIDES 17.6 MG/10 ML UDL PO SCH ×2 (08:37→20:38)
[2017-05-12] MEDS ORDERED: SENNOSIDES/DOCUSATE SODIUM TAB PO SCH (09:00)
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
--- NOTE | 2017-05-12 11:26 | SOAPPROG ---
SOAP Progress Note Assessment/Plan: Assessment: Post PEG with loosening of bumper yesterday. No e/o complication no bleeding infection or leaking Plan:Continue with PEG tube use and routine care Will sign off Subjective: CC Post PEG unable to take PO Patient non communicative Objective: Vital Signs Temp Pulse Resp BP Pulse Ox 37.7 C 74 42 H 140/71 H 97 05/12/17 08:00 05/12/17 10:00 05/12/17 10:00 05/12/17 10:00 05/12/17 10:00 Microbiology 05/10/17 12:00 - Final Sputum, Induced/Suctioned Laboratory Results 05/12/17 03:30 05/12/17 03:30 05/11/17 05/12/17 05/13/17 05:59 05:59 05:59 Intake Total 2378 2137 105 Output Total 2490 3870 950 Balance -112 -1733 -845 PT 14.3 SEC (12.0-15.0) 05/09/17 16:20 INR 1.12 (0.83-1.16) 05/09/17 16:20 Physical Exam - Physical Exam General Appearance: other (open eyes) Abdomen: non-tender, soft, other (PEG tube with out leak no erythema) ICD10 Worksheet Patient Problems: Problems Problem Status Onset Abrasions of multiple sites Acute Aspiration pneumonia due to regurgitated food Acute Closed right clavicular fracture Acute Malnutrition Acute Multiple rib fractures involving four or more ribs Acute Pneumothorax Acute Respiratory insufficiency Acute Right acetabular fracture Acute Subarachnoid hemorrhage, traumatic Acute Traumatic pneumothorax Acute
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
[2017-05-12 12:40] LABS: POTASSIUM 3.8 mEq/L (3.5-5.2)
[2017-05-12] MEDS ORDERED: PROTOCOL POTASSIUM 1 DOSE MISC PRN (13:56)
[2017-05-12] MEDS ORDERED: POTASSIUM CL 10 MEQ TAB PO ONE (14:06)
[2017-05-12 18:13] LABS: POTASSIUM 3.9 mEq/L (3.5-5.2)
[2017-05-12] MEDS: HYDROmorphONE/DILAUDID 1 MG/ML INJ IVP PRN (20:25)
[2017-05-12] MEDS: PATCH REMOVAL 1 EA PATCH TD SCH (20:31)
[2017-05-13] MEDS: ACETAMINOPHEN 650 MG/20.3 ML UDCUP TUBE PRN (00:10)
[2017-05-13] MEDS: HYDROmorphONE/DILAUDID 1 MG/ML INJ IVP PRN (01:37)
[2017-05-13 06:47] LABS: POTASSIUM 3.9 mEq/L (3.5-5.2)
[2017-05-13] MEDS ORDERED: POLYETHYLENE GLYCOL 3350 17 GM PKT TUBE PRN (08:00)
[2017-05-13] MEDS ORDERED: MAGNESIUM HYDROXIDE 30 ML UDCUP TUBE PRN (08:00)
[2017-05-13] MEDS: CHLORHEXIDINE GLUCONATE 15 ML UDL PO SCH ×2 (09:44→19:41)
[2017-05-13] MEDS: ENOXAPARIN 40 MG/0.4 ML SYR SC SCH (09:50)
[2017-05-13] MEDS: SENNOSIDES 17.6 MG/10 ML UDL TUBE SCH ×2 (09:52→20:05)
[2017-05-13] MEDS: LISINOPRIL 40 MG TAB TUBE SCH (09:52)
[2017-05-13] MEDS: HYDROCHLOROTHIAZIDE 25 MG TAB TUBE SCH (09:53)
[2017-05-13] MEDS: FUROSEMIDE 20 MG/2 ML VIAL IVP SCH (09:55)
[2017-05-13] MEDS: FAMOTIDINE 20 MG TAB TUBE SCH (09:56)
[2017-05-13] MEDS: levETIRAcetam 500 MG/5 ML UDCUP TUBE SCH ×2 (09:56→20:04)
[2017-05-13] MEDS: METOPROLOL TARTRATE 25 MG TAB TUBE SCH ×2 (09:59→20:04)
[2017-05-13 11:16] LABS: ALANINE AMINOTRANSFERASE 341 IU/L (21-72); ALBUMIN 2.7 g/dL (3.5-5.0); ALKALINE PHOSPHATASE 247 IU/L (38-126); ANION GAP 9 mEq/L (8-16); ASPARTATE AMINOTRANSFERASE 320 IU/L (17-59); BILIRUBIN,TOTAL 0.9 mg/dL (0.1-1.4); BILIRUBIN-CONJUGATED 0.3 mg/dL (0.0-0.5); BILIRUBIN-UNCONJUGATED 0.6 mg/dL (0.0-1.1); CALCIUM 8.1 mg/dL (8.5-10.4); CARBON DIOXIDE 28 mEq/l (22-31); CHLORIDE 98 mEq/L (97-110); CREATININE 1.1 mg/dL (0.7-1.3); GLOMERULAR FILTRATION RATE > 60; GLUCOSE 131 mg/dL (70-100); POTASSIUM 3.8 mEq/L (3.5-5.2); SODIUM 135 mEq/L (134-144)
--- NOTE | 2017-05-13 11:39 | SOAPPROG ---
SOAP Progress Note Assessment/Plan: Assessment: Plan: Subjective: up in chair, some purposeful motions with left arm. does not follow commands for me pe; lungs clear, heart nml s1s2 abd soft c collar in place plan: remove r chest tube. needs placemnt at ltac Objective: Vital Signs Temp Pulse Resp BP Pulse Ox 37.2 C 86 16 112/61 100 05/13/17 08:00 05/13/17 09:59 05/13/17 08:00 05/13/17 09:59 05/13/17 08:30 Microbiology 05/10/17 12:00 - Final Sputum, Induced/Suctioned Sputum Culture - Final Camila Tropicalis Laboratory Results 05/12/17 03:30 05/13/17 06:30 05/12/17 05/13/17 05/14/17 05:59 05:59 05:59 Intake Total 7 2003 Output Total 7380 8940 Balance -1733 -826 PT 14.3 SEC (12.0-15.0) 05/09/17 16:20 INR 1.12 (0.83-1.16) 05/09/17 16:20 ICD10 Worksheet Patient Problems: Problems Problem Status Onset Abrasions of multiple sites Acute Aspiration pneumonia due to regurgitated food Acute Closed right clavicular fracture Acute Malnutrition Acute Multiple rib fractures involving four or more ribs Acute Pneumothorax Acute Respiratory insufficiency Acute Right acetabular fracture Acute Subarachnoid hemorrhage, traumatic Acute Traumatic pneumothorax Acute
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
[2017-05-13] MEDS: LIDOCAINE 5% 1 EA PATCH TD SCH (13:37)
[2017-05-13] MEDS: HYDROGEN PEROXIDE 236 ML BOTTLE TP SCH ×2 (13:41→20:04)
[2017-05-13] MEDS: oxyCODONE ORAL SOLUTION 10 MG/0.5 ML UDSYR TUBE PRN (16:23)
[2017-05-13 19:13] LABS: POTASSIUM 3.5 mEq/L (3.5-5.2)
[2017-05-13] MEDS ORDERED: POTASSIUM CL 20 MEQ/15 ML UDCUP PO ONE (19:30)
[2017-05-13] MEDS: PATCH REMOVAL 1 EA PATCH TD SCH (20:13)
[2017-05-14 04:12] LABS: % IMMATURE GRANULYOCYTES 0.6 % (0.0-1.1); ABSOLUTE IMMATURE GRANULOCYTES 0.07 10^3/uL (0.00-0.10); ADD DIFF? NO; ADD MORPH? NO; ADD SCAN? NO; ATYPICAL LYMPHOCYTE FLAG 20 (0-99); FRAGMENT RBC FLAG 0 (0-99); HEMATOCRIT 26.5 % (40.0-51.0); HEMOGLOBIN 8.8 g/dL (13.7-17.5); LEFT SHIFT FLG 10 (0-99); LIPEMIA HEMOLYSIS FLAG 80 (0-99); MEAN CELL HEMOGLOBIN CONCENTR. 33.2 g/dL (32.4-36.7); MEAN CELL VOLUME 90.4 fL (81.5-99.8); MEAN PLATELET VOLUME 10.5 fL (8.7-11.7); PLATELET CLUMPS FLAG 20 (0-99); PLATELET COUNT 424 10^3/uL (150-400); RED BLOOD CELL COUNT 2.93 10^6/uL (4.40-6.38); RED CELL DISTRIBUTION WIDTH 12.8 % (11.5-15.2)
[2017-05-14 04:36] LABS: ALANINE AMINOTRANSFERASE 286 IU/L (21-72); ALBUMIN 2.8 g/dL (3.5-5.0); ALKALINE PHOSPHATASE 262 IU/L (38-126); ANION GAP 8 mEq/L (8-16); ASPARTATE AMINOTRANSFERASE 193 IU/L (17-59); BILIRUBIN,TOTAL 0.8 mg/dL (0.1-1.4); BILIRUBIN-CONJUGATED 0.3 mg/dL (0.0-0.5); BILIRUBIN-UNCONJUGATED 0.5 mg/dL (0.0-1.1); CALCIUM 8.1 mg/dL (8.5-10.4); CARBON DIOXIDE 28 mEq/l (22-31); CHLORIDE 98 mEq/L (97-110); GLOMERULAR FILTRATION RATE > 60; GLUCOSE 134 mg/dL (70-100); POTASSIUM 3.8 mEq/L (3.5-5.2); SODIUM 134 mEq/L (134-144); TOTAL PROTEIN 6.2 g/dL (6.3-8.2)
[2017-05-14] MEDS ORDERED: POTASSIUM CL 10 MEQ TAB PO ONE (04:54)
[2017-05-14 05:25] LABS: BASE EXCESS 5.4 mEq/L (-2.5-2.5); BICARBONATE 28 mEq/L (22-26); MEASURED OXYGEN SATURATION 97 % (92-95); PCO2 33 mmHg (34-38); PO2 85 mmHg (65-75); TCO2 29 mEq/L (23-27)
[2017-05-14 05:27] LABS: END TIDAL CO2 31; O2 CONCENTRATIION 40 % (0-100); P/F RATIO 213 RATIO; PATIENT RATE 16; PRESSURE SUPPORT 7; SIMV YES
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
[2017-05-14] MEDS ORDERED: LACTULOSE 20 GM/30 ML UDCUP TUBE PRN (08:30)
[2017-05-14] MEDS: HYDROCHLOROTHIAZIDE 25 MG TAB TUBE SCH (08:56)
[2017-05-14] MEDS: LISINOPRIL 40 MG TAB TUBE SCH (08:57)
[2017-05-14] MEDS: ACETAMINOPHEN 650 MG/20.3 ML UDCUP TUBE PRN ×2 (08:57→21:23)
[2017-05-14] MEDS: levETIRAcetam 500 MG/5 ML UDCUP TUBE SCH ×2 (08:57→21:07)
[2017-05-14] MEDS: CHLORHEXIDINE GLUCONATE 15 ML UDL PO SCH ×2 (08:57→21:08)
[2017-05-14] MEDS: ENOXAPARIN 40 MG/0.4 ML SYR SC SCH (08:58)
[2017-05-14] MEDS: METOPROLOL TARTRATE 25 MG TAB TUBE SCH ×2 (08:58→21:07)
[2017-05-14] MEDS: SENNOSIDES 17.6 MG/10 ML UDL TUBE SCH ×2 (08:59→21:07)
[2017-05-14] MEDS: FAMOTIDINE 20 MG TAB TUBE SCH (08:59)
[2017-05-14] MEDS: LIDOCAINE 5% 1 EA PATCH TD SCH (08:59)
[2017-05-14] MEDS: FUROSEMIDE 20 MG/2 ML VIAL IVP SCH (09:02)
[2017-05-14 12:05] LABS: BASE EXCESS 3.8 mEq/L (-2.5-2.5); BICARBONATE 26 mEq/L (22-26); MEASURED OXYGEN SATURATION 99 % (92-95); TCO2 27 mEq/L (23-27)
[2017-05-14 12:08] LABS: ASSIST CONTROL YES; END TIDAL CO2 32; O2 CONCENTRATIION 40 % (0-100)
[2017-05-14 12:09] LABS: TOTAL RATE 18
[2017-05-14] MEDS: oxyCODONE ORAL SOLUTION 10 MG/0.5 ML UDSYR TUBE PRN ×3 (12:10→21:07)
[2017-05-14 12:11] LABS: P/F RATIO 340 RATIO; PCO2 32 mmHg (34-38); PO2 136 mmHg (65-75)
[2017-05-14] MEDS: HYDROGEN PEROXIDE 236 ML BOTTLE TP SCH ×2 (13:00→21:08)
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
[2017-05-14 21:06] LABS: POTASSIUM 3.8 mEq/L (3.5-5.2)
[2017-05-14] MEDS ORDERED: POTASSIUM CL 20 MEQ/15 ML UDCUP PO ONE (21:31)
[2017-05-14] MEDS: PATCH REMOVAL 1 EA PATCH TD SCH (23:26)
[2017-05-15] MEDS: HYDROmorphONE/DILAUDID 1 MG/ML INJ IVP PRN (00:22)
[2017-05-15 00:36] LABS: COLOR AMBER; LEUKOCYTE ESTERASE,URINE 1+ (NEGATIVE); NITRITE,URINE NEGATIVE (NEGATIVE)
[2017-05-15 00:37] LABS: BACTERIA TRACE /hpf (NONE SEEN); MUCUS TRACE /lpf (NONE-1+)
[2017-05-15] MEDS: oxyCODONE ORAL SOLUTION 10 MG/0.5 ML UDSYR TUBE PRN ×4 (04:05→21:48)
[2017-05-15 05:35] LABS: % IMMATURE GRANULYOCYTES 0.6 % (0.0-1.1); ABSOLUTE IMMATURE GRANULOCYTES 0.05 10^3/uL (0.00-0.10); ADD DIFF? NO; ADD MORPH? NO; ADD SCAN? NO; ATYPICAL LYMPHOCYTE FLAG 0 (0-99); FRAGMENT RBC FLAG 0 (0-99); HEMATOCRIT 23.9 % (40.0-51.0); HEMOGLOBIN 7.8 g/dL (13.7-17.5); LEFT SHIFT FLG 10 (0-99); LIPEMIA HEMOLYSIS FLAG 80 (0-99); MEAN CELL HEMOGLOBIN 29.7 pg (27.9-34.1); MEAN CELL HEMOGLOBIN CONCENTR. 32.6 g/dL (32.4-36.7); MEAN CELL VOLUME 90.9 fL (81.5-99.8); MEAN PLATELET VOLUME 10.6 fL (8.7-11.7); PLATELET CLUMPS FLAG 0 (0-99); PLATELET COUNT 363 10^3/uL (150-400); RED BLOOD CELL COUNT 2.63 10^6/uL (4.40-6.38); RED CELL DISTRIBUTION WIDTH 12.7 % (11.5-15.2)
[2017-05-15 06:00] LABS: BASE EXCESS 3.7 mEq/L (-2.5-2.5); BICARBONATE 27 mEq/L (22-26); MEASURED OXYGEN SATURATION 97 % (92-95); PCO2 37 mmHg (34-38); PO2 93 mmHg (65-75); TCO2 28 mEq/L (23-27)
[2017-05-15 06:00] LABS: ALANINE AMINOTRANSFERASE 205 IU/L (21-72); ALBUMIN 2.4 g/dL (3.5-5.0); ALKALINE PHOSPHATASE 240 IU/L (38-126); ANION GAP 7 mEq/L (8-16); ASPARTATE AMINOTRANSFERASE 103 IU/L (17-59); BILIRUBIN,TOTAL 1.1 mg/dL (0.1-1.4); CALCIUM 8.3 mg/dL (8.5-10.4); CARBON DIOXIDE 29 mEq/l (22-31); CHLORIDE 96 mEq/L (97-110); CREATININE 1.3 mg/dL (0.7-1.3); GLOMERULAR FILTRATION RATE 53; GLUCOSE 104 mg/dL (70-100); POTASSIUM 3.7 mEq/L (3.5-5.2); SODIUM 132 mEq/L (134-144); TOTAL PROTEIN 5.9 g/dL (6.3-8.2)
[2017-05-15 06:01] LABS: ASSIST CONTROL YES; END TIDAL CO2 38; O2 CONCENTRATIION 40 % (0-100); P/F RATIO 233 RATIO; TOTAL RATE 12
[2017-05-15 06:35] LABS: HEMATOCRIT 23.2 % (40.0-51.0); HEMOGLOBIN 7.5 g/dL (13.7-17.5)
[2017-05-15] MEDS ORDERED: POTASSIUM CL 10 MEQ TAB PO ONE (07:27)
[2017-05-15] MEDS ORDERED: POTASSIUM CL 20 MEQ/15 ML UDCUP TUBE ONE (07:45)
[2017-05-15] MEDS ORDERED: POTASSIUM CL 20 MEQ/15 ML UDCUP PO ONE (07:45)
[2017-05-15] MEDS: FUROSEMIDE 20 MG/2 ML VIAL IVP SCH (08:01)
[2017-05-15] MEDS: CHLORHEXIDINE GLUCONATE 15 ML UDL PO SCH ×2 (08:01→21:08)
[2017-05-15] MEDS: FAMOTIDINE 20 MG TAB TUBE SCH (08:02)
[2017-05-15] MEDS: ENOXAPARIN 40 MG/0.4 ML SYR SC SCH (08:02)
[2017-05-15] MEDS: levETIRAcetam 500 MG/5 ML UDCUP TUBE SCH ×2 (08:02→20:22)
[2017-05-15] MEDS: LIDOCAINE 5% 1 EA PATCH TD SCH (08:03)
[2017-05-15] MEDS: SENNOSIDES 17.6 MG/10 ML UDL TUBE SCH ×2 (08:05→20:22)
[2017-05-15] MEDS: HYDROCHLOROTHIAZIDE 25 MG TAB TUBE SCH (08:07)
[2017-05-15] MEDS: HYDROGEN PEROXIDE 236 ML BOTTLE TP SCH ×2 (08:08→21:08)
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
[2017-05-15] MEDS: METOPROLOL TARTRATE 25 MG TAB TUBE SCH ×2 (09:42→21:09)
[2017-05-15] MEDS: LISINOPRIL 40 MG TAB TUBE SCH (09:45)
--- NOTE | 2017-05-15 10:17 | WOCRNPDOC ---
WOCRN Advanced Assessment Note - Skin Integrity Problem, Advanced Assess Anterior Neck Surgical Wound/Incision Dressing Type: Polymem (dressing placed by RT) Dressing Description: Clean/Dry Exudate Amount: Scant Exudate Color: Reddish/Yellow Exudate Characteristic(s): Serosanguinous Integumentary Issue Intervention: Dressing Changed (by RT) Margaret Wound Tissue: Blanching, Erythema Wound Bed Color: Red, Yellow Wound Bed Constitution: Granulation Tissue (40%), Adhered Slough (60%) Site Odor: None Site Measurement - Head-to-Toe Length X Width X Depth (cm): 0.7cmx2.1cmx0.2cm Skin Integrity Problem Comment: Slough-filled wound noted proximal to trach site on anterior neck. Polymem foam dressing was placed by RT just after trach placement on 05/09 to absorb secretions and reduce pressure. After examining face plate from trach, this wound does not appear to be the result of pressure. I was able to lift it gently to visualize wound, and there was no direct pressure over the site. Wound currently adhered slough w/ scattered granulation throughout, minimal exudate. As long as trach is in place, wound care will consist of protecting the wound using the foam dressing. Site was cleansed w/ NS and gauze, skin prep applied to surrounding skin, and RT Deisy replaced Polymem foam dressing. Wound RN will continue to monitor site, coordinating w/ RT for assessments. Next assessment on Friday 05/18.
--- NOTE | 2017-05-15 12:22 | ASMTCMCOM ---
CM Note CM Note Notes: Met with romi Varela. The family toured facilities and are inclined to go with [facility] pending discussion with family members. They wish to speak to liason tomorrow. Funmilayo contacted and replied she can be available to family between 10-11 am tomorrow for questions. Will update them with progess notes via allscripts. Family also requesting name of patient's PCP. Per face sheet Dr. Nabeel Chavez is his PCP. Message left with romi Varela regarding planned visit with Funmilayo and his dad's PCP name. C/M to follow. Date Signed: 05/15/2017 12:21 PM Electronically Signed By:Candi Norris RN
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
[2017-05-15 18:12] LABS: POTASSIUM 4.1 mEq/L (3.5-5.2)
[2017-05-15] MEDS: ACETAMINOPHEN 650 MG/20.3 ML UDCUP TUBE PRN (20:31)
[2017-05-15] MEDS: PATCH REMOVAL 1 EA PATCH TD SCH (21:09)
[2017-05-16] MEDS: oxyCODONE ORAL SOLUTION 10 MG/0.5 ML UDSYR TUBE PRN ×2 (04:19→20:54)
[2017-05-16 04:41] LABS: % IMMATURE GRANULYOCYTES 0.5 % (0.0-1.1); ABSOLUTE IMMATURE GRANULOCYTES 0.03 10^3/uL (0.00-0.10); ADD DIFF? NO; ADD MORPH? NO; ADD SCAN? NO; ATYPICAL LYMPHOCYTE FLAG 60 (0-99); FRAGMENT RBC FLAG 0 (0-99); HEMATOCRIT 22.6 % (40.0-51.0); HEMOGLOBIN 7.3 g/dL (13.7-17.5); LEFT SHIFT FLG 0 (0-99); LIPEMIA HEMOLYSIS FLAG 80 (0-99); MEAN CELL HEMOGLOBIN 29.7 pg (27.9-34.1); MEAN CELL HEMOGLOBIN CONCENTR. 32.3 g/dL (32.4-36.7); MEAN CELL VOLUME 91.9 fL (81.5-99.8); MEAN PLATELET VOLUME 10.3 fL (8.7-11.7); PLATELET CLUMPS FLAG 10 (0-99); PLATELET COUNT 345 10^3/uL (150-400); RED BLOOD CELL COUNT 2.46 10^6/uL (4.40-6.38); RED CELL DISTRIBUTION WIDTH 12.6 % (11.5-15.2)
[2017-05-16] MEDS: HYDROmorphONE/DILAUDID 1 MG/ML INJ IVP PRN (04:53)
[2017-05-16 05:02] LABS: ALANINE AMINOTRANSFERASE 152 IU/L (21-72); ALBUMIN 2.4 g/dL (3.5-5.0); ALKALINE PHOSPHATASE 252 IU/L (38-126); ANION GAP 8 mEq/L (8-16); ASPARTATE AMINOTRANSFERASE 66 IU/L (17-59); CALCIUM 8.1 mg/dL (8.5-10.4); CARBON DIOXIDE 28 mEq/l (22-31); CHLORIDE 96 mEq/L (97-110); CREATININE 1.4 mg/dL (0.7-1.3); GLOMERULAR FILTRATION RATE 49; GLUCOSE 127 mg/dL (70-100); POTASSIUM 3.6 mEq/L (3.5-5.2); SODIUM 132 mEq/L (134-144); TOTAL PROTEIN 5.8 g/dL (6.3-8.2)
[2017-05-16] MEDS ORDERED: POTASSIUM CL 10 MEQ TAB PO ONE (06:28)
[2017-05-16] MEDS ORDERED: POTASSIUM CL 20 MEQ/15 ML UDCUP TUBE ONE ×2 (06:45→19:30)
[2017-05-16] MEDS ORDERED: POTASSIUM CL 20 MEQ/15 ML UDCUP TUBE PRN (07:00)
[2017-05-16] MEDS: CHLORHEXIDINE GLUCONATE 15 ML UDL PO SCH ×2 (08:06→19:44)
[2017-05-16] MEDS: levETIRAcetam 500 MG/5 ML UDCUP TUBE SCH ×2 (08:06→20:54)
[2017-05-16] MEDS: LIDOCAINE 5% 1 EA PATCH TD SCH (08:06)
[2017-05-16] MEDS: SENNOSIDES 17.6 MG/10 ML UDL TUBE SCH ×2 (08:07→20:54)
[2017-05-16] MEDS: ENOXAPARIN 40 MG/0.4 ML SYR SC SCH (08:07)
[2017-05-16] MEDS: FUROSEMIDE 20 MG/2 ML VIAL IVP SCH (08:08)
[2017-05-16] MEDS: METOPROLOL TARTRATE 25 MG TAB TUBE SCH ×2 (08:08→20:54)
[2017-05-16] MEDS: FAMOTIDINE 20 MG TAB TUBE SCH (08:08)
[2017-05-16] MEDS: HYDROGEN PEROXIDE 236 ML BOTTLE TP SCH ×2 (08:08→20:55)
[2017-05-16] MEDS: LISINOPRIL 40 MG TAB TUBE SCH (08:08)
[2017-05-16] MEDS: HYDROCHLOROTHIAZIDE 25 MG TAB TUBE SCH (08:08)
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
--- NOTE | 2017-05-16 09:07 | TRAUMAPN ---
- Problem/Surgery Performed (1) Closed right clavicular fracture Assessment/Plan: ortho consult Dr. Mills/operative intervention not recommended Qualifiers: Encounter type: initial encounter (2) Multiple rib fractures involving four or more ribs Assessment/Plan: clinically improved ventilation/will monitor (3) Pneumothorax Assessment/Plan: resolved Qualifiers: Pneumothorax type: traumatic (4) Right acetabular fracture Assessment/Plan: ortho consult Dr. Mills-recommends non-operative Rx Qualifiers: Encounter type: initial encounter Sublocation of acetabulum: anterior wall Fracture alignment: nondisplaced (5) Subarachnoid hemorrhage, traumatic Assessment/Plan: stable on sequential CT/neurologically improved/prior CVA with residual defecits Qualifiers: Encounter type: subsequent encounter Loss of consciousness presence/ duration: with LOC of unspecified duration Qualified Code(s): S06.6X9D - Traumatic subarachnoid hemorrhage with loss of consciousness of unspecified duration, subsequent encounter (6) Aspiration pneumonia due to regurgitated food Assessment/Plan: resolving clinically Qualifiers: Laterality: unspecified laterality Assessment/Plan: continue ICU observation/care continue agressive suctioning/ventilatory assistance as needed placement at LTAC when bed available Subjective: breathing with some effort on T-piece Objective: Vital Signs Temp Pulse Resp BP Pulse Ox 37.7 C 70 30 H 112/53 L 96 05/16/17 08:00 05/16/17 08:00 05/16/17 08:00 05/16/17 08:00 05/16/17 08:00 Microbiology 05/14/17 12:25 - Final Sputum, Induced/Suctioned Laboratory Results 05/16/17 04:30 05/16/17 04:30 05/15/17 05/16/17 05/17/17 05:59 05:59 05:59 Intake Total 1855 1477 Output Total 1275 1260 Balance 580 217 PT 14.3 SEC (12.0-15.0) 05/09/17 16:20 INR 1.12 (0.83-1.16) 05/09/17 16:20 - C-Spine Clearance Cervical Spine Cleared: No Physical Exam - Physical Exam General Appearance: other (looked at me) EENT: other (tracheostomy site uncomplicated) Neck: other (hard cervical collar in place) Respiratory: lungs clear, normal breath sounds, decreased breath sounds Cardiac/Chest: regular rate, rhythm Abdomen: non-tender, soft, other (PEG site o.k.) Male Genitalia: other (uncircumcised with Del Toro in place) Rectal: deferred Skin: warm/dry Extremities: other (moving LUE/LLE spontaneously, not moving RUE/RLE much) Neuro/Psych: cognition abnormalities, disoriented to person, disoriented to place, disoriented to time, other (clinical right hemiparesis)
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
[2017-05-16 18:25] LABS: POTASSIUM 3.9 mEq/L (3.5-5.2)
--- NOTE | 2017-05-16 20:30 | GIREPORT ---
[facility] Surgical Services - Endoscopy Department Patient Name: Jose Juan Garcia Procedure Date: 05/09/2017 5:11 PM Patient Type: Inpatient Attending / ALE Physician: Brie Qiu Procedure: Upper GI endoscopy Indications: Place PEG because patient is unable to eat, Place PEG to improve nutrit ion in patient with prolonged severe illness Providers: Mani George MD Medicines: General Anesthesia Complications: No immediate complications. Estimated blood loss: Minimal. Findings: The examined esophagus was normal. Scattered mild inflammation characterized by erythema was found in the gastric body. The patient was placed in the supine position for PEG placement. The stomach was insufflated to appose gastric a nd abdominal ruiz. A site was located in the body of the stomach with good transillumination and m anual external pressure for placement. The abdominal wall was marked and prepped in a sterile manner. The area was anesthetized with 1 mL of 1% lidocaine. The trocar needle was introduced through the abdominal wall and into the stomach under direct endoscopic view. A snare was introduced through the endoscope and opened in the gastric lumen. The guide wire was passed through the trocar and into the open snare. The snare was closed around the guide wire. The endoscope and snare were removed, pu lling the wire out through the mouth. A skin incision was made at the site of needle insertion. The externally removable 20 Fr EndoVive Safety gastrostomy tube was lubricated. The G-tube was tied to the guide wire and pulled through the mouth and into the stomach. The trocar needle was removed, and the gastrostomy tube was pulled out from the stomach through the skin. The external bumper was attached to the gastrostomy tube, and the tube was cut to remove the guide wire. The final posit ion of the gastrostomy tube was confirmed by relook endoscopy, and skin marking noted to be 2 cm at the external bumper. The final tension and compression of the abdominal wall by the PEG tube and ext ernal bumper were checked and revealed that the bumper was moderately tight and mildly deforming the s kin. The feeding tube was capped, and the tube site cleaned and dressed. The duodenal bulb was normal. The exam was otherwise without abnormality. Estimated Blood Loss: Estimated blood loss was minimal. Post Op Diagnosis: - Normal esophagus. - Gastritis. - Normal duodenal bulb. - The examination was otherwise normal. - An externally removable PEG placement was successfully completed. - No specimens collected. Recommendation: - Please follow the post-PEG recommendations including: external bolster snug to abdominal wall, change dressing on top of bumper daily, NPO until checked by physician, may use PEG today for me ds and water, clean site daily with half-strength hydrogen peroxide for three days, then soap and w ater daily and place PEG to gravity drainage (heaton bag). - Return patient to ICU for ongoing care after trach placed in OR. - Continue present medications. - Can use PEG for meds tonight. I will see him in the morning and OK PEG for feeds at that time. - Thank you for allowing me to help in your patient's care. Do not hesitate to call with any questions. Attending Participation: I personally performed the entire procedure. Doris Singleton M.D Mani George MD 05/09/2017 7:43:23 PM Number of Addenda: 0 Note Initiated On: 05/09/2017 5:11 PM [email or web address]
[2017-05-16] MEDS: PATCH REMOVAL 1 EA PATCH TD SCH (21:00)
--- NOTE | 2017-05-16 23:27 | SOAPPROG ---
Downtime Inpatient MD Late Entry SOAP Note: #7.0 fenestrated tracheostomy tube exchanged due to cuff failure/mature tracheostomy tract noted/uncomplicated. S MD Jon, FACS
[2017-05-17] MEDS: HYDROmorphONE/DILAUDID 1 MG/ML INJ IVP PRN (02:07)
[2017-05-17 04:41] LABS: % IMMATURE GRANULYOCYTES 0.6 % (0.0-1.1); ABSOLUTE IMMATURE GRANULOCYTES 0.05 10^3/uL (0.00-0.10); ADD DIFF? NO; ADD MORPH? NO; ADD SCAN? NO; ATYPICAL LYMPHOCYTE FLAG 50 (0-99); FRAGMENT RBC FLAG 0 (0-99); HEMATOCRIT 24.8 % (40.0-51.0); HEMOGLOBIN 8.1 g/dL (13.7-17.5); LEFT SHIFT FLG 0 (0-99); LIPEMIA HEMOLYSIS FLAG 80 (0-99); MEAN CELL HEMOGLOBIN 29.6 pg (27.9-34.1); MEAN CELL HEMOGLOBIN CONCENTR. 32.7 g/dL (32.4-36.7); MEAN CELL VOLUME 90.5 fL (81.5-99.8); MEAN PLATELET VOLUME 10.5 fL (8.7-11.7); PLATELET CLUMPS FLAG 0 (0-99); PLATELET COUNT 435 10^3/uL (150-400); RED BLOOD CELL COUNT 2.74 10^6/uL (4.40-6.38); RED CELL DISTRIBUTION WIDTH 12.4 % (11.5-15.2)
[2017-05-17 04:52] LABS: ALANINE AMINOTRANSFERASE 135 IU/L (21-72); ALBUMIN 2.8 g/dL (3.5-5.0); ALKALINE PHOSPHATASE 321 IU/L (38-126); ANION GAP 10 mEq/L (8-16); ASPARTATE AMINOTRANSFERASE 58 IU/L (17-59); CALCIUM 8.2 mg/dL (8.5-10.4); CARBON DIOXIDE 29 mEq/l (22-31); CHLORIDE 97 mEq/L (97-110); CREATININE 1.2 mg/dL (0.7-1.3); GLOMERULAR FILTRATION RATE 58; GLUCOSE 152 mg/dL (70-100); POTASSIUM 3.8 mEq/L (3.5-5.2); SODIUM 136 mEq/L (134-144); TOTAL PROTEIN 6.4 g/dL (6.3-8.2)
[2017-05-17] MEDS: oxyCODONE ORAL SOLUTION 10 MG/0.5 ML UDSYR TUBE PRN (05:16)
[2017-05-17] MEDS ORDERED: POTASSIUM CL 20 MEQ/15 ML UDCUP TUBE ONE (05:45)
[2017-05-17] MEDS: CHLORHEXIDINE GLUCONATE 15 ML UDL PO SCH ×2 (08:14→21:00)
[2017-05-17] MEDS: levETIRAcetam 500 MG/5 ML UDCUP TUBE SCH ×2 (08:14→21:20)
[2017-05-17] MEDS: HYDROCHLOROTHIAZIDE 25 MG TAB TUBE SCH (08:14)
[2017-05-17] MEDS: SENNOSIDES 17.6 MG/10 ML UDL TUBE SCH ×2 (08:15→21:20)
[2017-05-17] MEDS: LIDOCAINE 5% 1 EA PATCH TD SCH (08:15)
[2017-05-17] MEDS: METOPROLOL TARTRATE 25 MG TAB TUBE SCH ×2 (08:16→21:31)
[2017-05-17] MEDS: LISINOPRIL 40 MG TAB TUBE SCH (08:16)
[2017-05-17] MEDS: HYDROGEN PEROXIDE 236 ML BOTTLE TP SCH (08:18)
[2017-05-17] MEDS: FAMOTIDINE 20 MG TAB TUBE SCH (08:18)
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
--- NOTE | 2017-05-17 16:15 | ASMTCMCOM ---
CM Note CM Note Notes: Patient has been accepted by [facility] and we have been waiting for insurance authorization since 05/14. After multiple calls to [facility], I have been assured that "the case is expedited" and will be followed up on; however, they cannot provide me with a rehabilitation case coordinator's contact information. I have our UR department trying to help, as well. Today, patient's son/RAMIRO Shaw expressed concern about patient's discharge and requested that it be put "on record" that he is not comfortable with patient leaving [facility] today. His questions and concerns were regarding the stability of patient's subarachnoid hemorrhage. I asked Dr Arias to call and speak with Valeria; he did, and informed me that Valeria agreed to discharge. We are waiting insurance authorization and patient will d/c to [facility] as soon as it's received. I spoke with Valeria and patient's other son Avery Prather to give them this update. Date Signed: 05/17/2017 04:14 PM Electronically Signed By:Meche Verduzco RN
[2017-05-17 18:42] LABS: POTASSIUM 4.1 mEq/L (3.5-5.2)
[2017-05-17] MEDS: PATCH REMOVAL 1 EA PATCH TD SCH (21:00)
[2017-05-18 04:57] LABS: % IMMATURE GRANULYOCYTES 0.5 % (0.0-1.1); ABSOLUTE IMMATURE GRANULOCYTES 0.04 10^3/uL (0.00-0.10); ADD DIFF? NO; ADD MORPH? NO; ADD SCAN? NO; ATYPICAL LYMPHOCYTE FLAG 40 (0-99); FRAGMENT RBC FLAG 0 (0-99); HEMOGLOBIN 8.2 g/dL (13.7-17.5); LEFT SHIFT FLG 0 (0-99); LIPEMIA HEMOLYSIS FLAG 80 (0-99); MEAN CELL HEMOGLOBIN 29.6 pg (27.9-34.1); MEAN CELL HEMOGLOBIN CONCENTR. 32.8 g/dL (32.4-36.7); MEAN CELL VOLUME 90.3 fL (81.5-99.8); MEAN PLATELET VOLUME 10.4 fL (8.7-11.7); PLATELET CLUMPS FLAG 0 (0-99); PLATELET COUNT 455 10^3/uL (150-400); RED BLOOD CELL COUNT 2.77 10^6/uL (4.40-6.38); RED CELL DISTRIBUTION WIDTH 12.1 % (11.5-15.2)
[2017-05-18 05:23] LABS: ALANINE AMINOTRANSFERASE 138 IU/L (21-72); ALBUMIN 2.7 g/dL (3.5-5.0); ALKALINE PHOSPHATASE 364 IU/L (38-126); ANION GAP 6 mEq/L (8-16); ASPARTATE AMINOTRANSFERASE 79 IU/L (17-59); BILIRUBIN,TOTAL 0.9 mg/dL (0.1-1.4); CALCIUM 8.8 mg/dL (8.5-10.4); CARBON DIOXIDE 30 mEq/l (22-31); CHLORIDE 101 mEq/L (97-110); GLOMERULAR FILTRATION RATE > 60; GLUCOSE 126 mg/dL (70-100); POTASSIUM 4.4 mEq/L (3.5-5.2); SODIUM 137 mEq/L (134-144); TOTAL PROTEIN 6.6 g/dL (6.3-8.2)
[2017-05-18] MEDS: METOPROLOL TARTRATE 25 MG TAB TUBE SCH ×2 (08:42→21:23)
[2017-05-18] MEDS: levETIRAcetam 500 MG/5 ML UDCUP TUBE SCH ×2 (08:42→21:22)
[2017-05-18] MEDS: LIDOCAINE 5% 1 EA PATCH TD SCH (08:43)
[2017-05-18] MEDS: HYDROCHLOROTHIAZIDE 25 MG TAB TUBE SCH (08:43)
[2017-05-18] MEDS: FAMOTIDINE 20 MG TAB TUBE SCH (08:43)
[2017-05-18] MEDS: LISINOPRIL 40 MG TAB TUBE SCH (08:43)
[2017-05-18] MEDS: SENNOSIDES 17.6 MG/10 ML UDL TUBE SCH ×2 (08:44→21:22)
[2017-05-18] MEDS: CHLORHEXIDINE GLUCONATE 15 ML UDL PO SCH ×2 (08:44→21:23)
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
--- NOTE | 2017-05-18 10:56 | PDIAF ---
- Diagnosis Code Status: Full Code - Medication Management Discharge Medications: Medications to Continue on Transfer Atorvastatin Calcium [Lipitor 20 mg (*)] 20 mg PO DAILY 05/01/17 [Last Taken Unknown] Hydrochlorothiazide [HCTZ (*)] 12.5 mg PO DAILY 05/01/17 [Last Taken Unknown] Lisinopril [Zestril 40 mg (*)] 40 mg PO DAILY 05/01/17 [Last Taken Unknown] Tamsulosin HCl [Flomax 0.4 MG (*)] 0.4 mg PO DAILY 05/01/17 [Last Taken Unknown] Discharge Medications: Refer to the Discharge Home Medication list for PRN reason. - Orders Services needed: Registered Nurse, Physical Therapy, Occupational Therapy Diet Texture: No Oral Liquids Tube feeding: yes Del Toro: Yes - Follow Up Care Current Providers and Referrals: Nabeel Chavez MD [Primary Care Provider] - As per Instructions
[2017-05-18] MEDS ORDERED: PNEUMOC 13-VAL CONJ-DIP CRM/PF 0.5 ML SYR IM ONE (12:40)
[2017-05-18] MEDS ORDERED: FLU VACC QS 2017-18 (3YR+)/PF 0.5 ML SYR (FLUARIX QUAD) IM ONE (12:40)
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
--- NOTE | 2017-05-18 16:47 | ASMTCMCOM ---
CM Note CM Note Notes: CM spoke with Marco A Marquez Mgr at [facility] ([phone]), who provided Fax # for rep in [facility] handling ins auth (F [phone]). Sent fax with request for call. Contacted [facility] Customer Service ([phone]) after not hearing from rep in [facility]. While on phone with Customer Service, received call from Funmilayo lisette [facility] - they had just received ins auth for 3 days. Pt set [facility] for [facility] critical transport tomorrow at 10:00am. [facility] (and [facility] did not have critical transport staff available this afternoon. Contacted Dr Echols and provided MD to info (Dr Echeverria [phone]) and RN to RN Report # to Ada ([phone]). PCS Form completed - copy given to GISSELLE Muller and in chart. Copy will also be left in CM Dept. The phone number for [facility]'s Authorization Dept is [phone]. Emailed Мария to inform of d/c tomorrow for IM. Date Signed: 05/18/2017 04:46 PM Electronically Signed By:SUSANNE Alvarez
[2017-05-18] MEDS: oxyCODONE ORAL SOLUTION 10 MG/0.5 ML UDSYR TUBE PRN ×2 (16:57→21:23)
[2017-05-18 18:32] LABS: POTASSIUM 4.3 mEq/L (3.5-5.2)
[2017-05-18] MEDS: PATCH REMOVAL 1 EA PATCH TD SCH (21:00)
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
[2017-05-19 05:30] LABS: % IMMATURE GRANULYOCYTES 0.5 % (0.0-1.1); ABSOLUTE IMMATURE GRANULOCYTES 0.05 10^3/uL (0.00-0.10); ADD DIFF? NO; ADD MORPH? NO; ADD SCAN? NO; ATYPICAL LYMPHOCYTE FLAG 40 (0-99); FRAGMENT RBC FLAG 0 (0-99); HEMATOCRIT 25.8 % (40.0-51.0); HEMOGLOBIN 8.4 g/dL (13.7-17.5); LEFT SHIFT FLG 10 (0-99); LIPEMIA HEMOLYSIS FLAG 80 (0-99); MEAN CELL HEMOGLOBIN 29.6 pg (27.9-34.1); MEAN CELL HEMOGLOBIN CONCENTR. 32.6 g/dL (32.4-36.7); MEAN CELL VOLUME 90.8 fL (81.5-99.8); MEAN PLATELET VOLUME 10.3 fL (8.7-11.7); PLATELET CLUMPS FLAG 0 (0-99); PLATELET COUNT 465 10^3/uL (150-400); RED BLOOD CELL COUNT 2.84 10^6/uL (4.40-6.38); RED CELL DISTRIBUTION WIDTH 12.3 % (11.5-15.2)
[2017-05-19 05:51] VITALS: TEMP 98.6
[2017-05-19 06:04] LABS: ALANINE AMINOTRANSFERASE 150 IU/L (21-72); ALBUMIN 2.8 g/dL (3.5-5.0); ALKALINE PHOSPHATASE 367 IU/L (38-126); ANION GAP 11 mEq/L (8-16); ASPARTATE AMINOTRANSFERASE 76 IU/L (17-59); BILIRUBIN,TOTAL 0.8 mg/dL (0.1-1.4); CALCIUM 8.6 mg/dL (8.5-10.4); CARBON DIOXIDE 28 mEq/l (22-31); CHLORIDE 101 mEq/L (97-110); GLOMERULAR FILTRATION RATE > 60; GLUCOSE 132 mg/dL (70-100); POTASSIUM 4.4 mEq/L (3.5-5.2); SODIUM 140 mEq/L (134-144); TOTAL PROTEIN 6.6 g/dL (6.3-8.2)
[2017-05-19 07:09] VITALS: O2SAT 99
--- NOTE | 2017-05-19 07:30 | PDIAF ---
- Diagnosis Diagnosis: trauma, head injury Code Status: Full Code - Medication Management Discharge Medications: Medications to Continue on Transfer Atorvastatin Calcium [Lipitor 20 mg (*)] 20 mg PO DAILY 05/01/17 [Last Taken Unknown] Hydrochlorothiazide [HCTZ (*)] 12.5 mg PO DAILY 05/01/17 [Last Taken Unknown] Lisinopril [Zestril 40 mg (*)] 40 mg PO DAILY 05/01/17 [Last Taken Unknown] Tamsulosin HCl [Flomax 0.4 MG (*)] 0.4 mg PO DAILY 05/01/17 [Last Taken Unknown] Acetaminophen [Tylenol 650/20.3ML Oral Liq (*)] 650 mg TUBE Q6HRS PRN udcup [Last Taken Unknown] Famotidine [Pepcid 20 MG (*)] 20 mg TUBE DAILY tab 05/18/17 [Last Taken Unknown ] HYDROmorphone HCL [Dilaudid] 0.2 - 0.4 mg IVP Q2HRS PRN inj 05/18/17 [Last Taken Unknown] Hydrochlorothiazide [HCTZ (*)] 25 mg TUBE DAILY tab 05/18/17 [Last Taken Unknown] Labetalol HCl [Trandate Inj 5 mg/ml (*)] 20 mg IVP Q4HRS PRN mdv 05/18/17 [ Last Taken Unknown] Metoprolol Tartrate [Lopressor 25 mg (*)] 25 mg TUBE BID tab 05/18/17 [Last Taken Unknown] Naloxone HCl [Narcan] 0.4 mg IVP PRN PRN inj 05/18/17 [Last Taken Unknown] Polyethylene Glycol 3350 [Miralax 17 gm (*)] 17 gm TUBE DAILY PRN pkt 05/18/17 [Last Taken Unknown] Potassium Chloride Po [Potassium Chloride 20 mg/15 ml (*)] 20 - 40 meq TUBE PRN PRN udcup 05/18/17 [Last Taken Unknown] Discharge Medications: Refer to the Discharge Home Medication list for PRN reason. - Orders Services needed: Registered Nurse, Physical Therapy, Occupational Therapy Diet Recommendation: other Diet Texture: No Oral Liquids Tube feeding: Jevity 1.5 at 45cc/Hr Del Toro: Yes - Follow Up Care Current Providers and Referrals: Nabeel Chavez MD [Primary Care Provider] - As per Instructions Sangeeta Rojas MD [Medical Doctor] - follow up in 2 weeks
[2017-05-19 07:50] VITALS: RESP 21
[2017-05-19] MEDS: levETIRAcetam 500 MG/5 ML UDCUP TUBE SCH (08:14)
[2017-05-19] MEDS: CHLORHEXIDINE GLUCONATE 15 ML UDL PO SCH (08:14)
[2017-05-19] MEDS: METOPROLOL TARTRATE 25 MG TAB TUBE SCH (08:15)
[2017-05-19] MEDS: LIDOCAINE 5% 1 EA PATCH TD SCH (08:15)
[2017-05-19] MEDS: FAMOTIDINE 20 MG TAB TUBE SCH (08:15)
[2017-05-19] MEDS: LISINOPRIL 40 MG TAB TUBE SCH (08:15)
[2017-05-19] MEDS: HYDROCHLOROTHIAZIDE 25 MG TAB TUBE SCH (08:15)
[2017-05-19] MEDS: SENNOSIDES 17.6 MG/10 ML UDL TUBE SCH (08:15)
[2017-05-19 08:16] VITALS: BP 148/90; PULSE 72
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
--- NOTE | 2017-05-19 17:24 | ASMTCMCOM ---
CM Note CM Note Notes: Late Entry - Pt to discharge to [facility] LT today. Transporation previously arranged w/ [facility] for 10:00. Facesheet and PCS form provided to for [facility]. MATT Cottrell called report to MATT Cancino at [facility]. Discharge orders and paperwork faxed to [phone]; confirmed receipt w/ Joanie. Update provided to pt and family. CM avail for any further issues or concerns. Date Signed: 05/19/2017 05:23 PM Electronically Signed By:Radha Skelton RN
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
== END 2017-05-19 10:17 | DRG 3 ==
LOC: EDBD 13:14 → F2N 14:44
PROVIDERS: ADMIT Surgery; ATTEND Surgery
PROC: 0BH17EZ Insertion of Endotracheal Airway into Trachea, Via Natural or Artificial Opening (ICD-10-PCS; 2017-04-30)
PROC: 5A1955Z Respiratory Ventilation, Greater than 96 Consecutive Hours (ICD-10-PCS; 2017-04-30)
PROC: 0B938ZZ Drainage of Right Main Bronchus, Via Natural or Artificial Opening Endoscopic (ICD-10-PCS; 2017-04-30)
PROC: 0B9F8ZZ Drainage of Right Lower Lung Lobe, Via Natural or Artificial Opening Endoscopic (ICD-10-PCS; 2017-04-30)
PROC: 0B978ZZ Drainage of Left Main Bronchus, Via Natural or Artificial Opening Endoscopic (ICD-10-PCS; 2017-04-30)
PROC: 0B9J8ZZ Drainage of Left Lower Lung Lobe, Via Natural or Artificial Opening Endoscopic (ICD-10-PCS; 2017-04-30)
PROC: 0W993ZZ Drainage of Right Pleural Cavity, Percutaneous Approach (ICD-10-PCS; 2017-04-30)
PROC: 0B938ZZ Drainage of Right Main Bronchus, Via Natural or Artificial Opening Endoscopic (ICD-10-PCS; 2017-05-03)
PROC: 0B9F8ZZ Drainage of Right Lower Lung Lobe, Via Natural or Artificial Opening Endoscopic (ICD-10-PCS; 2017-05-03)
PROC: 0B9J8ZZ Drainage of Left Lower Lung Lobe, Via Natural or Artificial Opening Endoscopic (ICD-10-PCS; 2017-05-03)
PROC: 0B918ZZ Drainage of Trachea, Via Natural or Artificial Opening Endoscopic (ICD-10-PCS; 2017-05-03)
PROC: 0B938ZZ Drainage of Right Main Bronchus, Via Natural or Artificial Opening Endoscopic (ICD-10-PCS; 2017-05-04)
PROC: 0B978ZZ Drainage of Left Main Bronchus, Via Natural or Artificial Opening Endoscopic (ICD-10-PCS; 2017-05-04)
PROC: 0B9J8ZZ Drainage of Left Lower Lung Lobe, Via Natural or Artificial Opening Endoscopic (ICD-10-PCS; 2017-05-05)
PROC: 0B938ZZ Drainage of Right Main Bronchus, Via Natural or Artificial Opening Endoscopic (ICD-10-PCS; 2017-05-05)
PROC: 0B9F8ZZ Drainage of Right Lower Lung Lobe, Via Natural or Artificial Opening Endoscopic (ICD-10-PCS; 2017-05-05)
PROC: 02HV33Z Insertion of Infusion Device into Superior Vena Cava, Percutaneous Approach (ICD-10-PCS; 2017-05-06)
PROC: 0B9F8ZZ Drainage of Right Lower Lung Lobe, Via Natural or Artificial Opening Endoscopic (ICD-10-PCS; 2017-05-06)
PROC: 0B928ZZ Drainage of Carina, Via Natural or Artificial Opening Endoscopic (ICD-10-PCS; 2017-05-06)
PROC: 0DH67UZ Insertion of Feeding Device into Stomach, Via Natural or Artificial Opening (ICD-10-PCS; 2017-05-07)
PROC: 0B918ZZ Drainage of Trachea, Via Natural or Artificial Opening Endoscopic (ICD-10-PCS; 2017-05-07)
PROC: 0W9930Z Drainage of Right Pleural Cavity with Drainage Device, Percutaneous Approach (ICD-10-PCS; 2017-05-08)
PROC: 0D163J4 Bypass Stomach to Cutaneous with Synthetic Substitute, Percutaneous Approach (ICD-10-PCS; 2017-05-09)
PROC: 0B113F4 Bypass Trachea to Cutaneous with Tracheostomy Device, Percutaneous Approach (ICD-10-PCS; principal; 2017-05-09 19:00)
PROC: 0B978ZZ Drainage of Left Main Bronchus, Via Natural or Artificial Opening Endoscopic (ICD-10-PCS; 2017-05-10)
PROC: 0B938ZZ Drainage of Right Main Bronchus, Via Natural or Artificial Opening Endoscopic (ICD-10-PCS; 2017-05-10)
DX: S06.6X9A Traumatic subarachnoid hemorrhage with loss of consciousness of unspecified duration, initial encounter (principal); J69.0 Pneumonitis due to inhalation of food and vomit; S32.434A Nondisplaced fracture of anterior column [iliopubic] of right acetabulum, initial encounter for closed fracture; S22.41XA Multiple fractures of ribs, right side, initial encounter for closed fracture; S27.0XXA Traumatic pneumothorax, initial encounter; S22.32XA Fracture of one rib, left side, initial encounter for closed fracture; S42.001A Fracture of unspecified part of right clavicle, initial encounter for closed fracture; R40.2421 Glasgow coma scale score 9-12, in the field [EMT or ambulance]; V13.4XXA Pedal cycle driver injured in collision with car, pick-up truck or van in traffic accident, initial encounter; Y93.55 Activity, bike riding; I10 Essential (primary) hypertension; Z23 Encounter for immunization
CPT/HCPCS: 80305; 82947-QW; 96365; 97112-GO; 97112-GP; 97163-GP; 97166-GO; 97530-GO; 97530-GP; C1751; G0008; G0009; G0480; G8978-GP-CM; G8979-GP-CK; G8987-GO-CN; G8988-GO-CL; J0330; J0360; J1170; J1335; J1650; J1885; J1940; J1953; J2250; J2370; J2704; J2997; J3010; J3490; P9047